=== PATIENT | male | born 1960 | race Caucasian/White ===

== ENCOUNTER 2019-04-11 13:51 | Inpatient (IN) | payer OTHER ==
[2019-04-11 15:06] VITALS: BMI 22.4
--- NOTE | 2019-04-11 15:59 | HP ---
COWS - Scale Resting Pulse: 0= [place] 80 or Below Sweatin= Chills/Flushing Restless Observation: 1= Difficult to Sit Still Pupil Size: 0= Normal to Room Light Bone or Joint Aches: 2= Severe Diffuse Aches Runny Nose/ Eye Tearin= Runny Nose/Eyes GI Upset > 30mins: 1= Stomach Cramp Tremor Observation: 1= Tremor [place], Not Seen Yawning Observation: 0= None Anxiety or Irritability: 2=Irritable/Anxious Goose Flesh Skin: 0=Smooth Skin COWS Score: 10 CIWA Score - Admission Criteria [facility] Guidelines: Admission for Medically Managed Detox: Requires at least one of the followin. CIWA greater than 12 2. Seizures within the past 24 hours 3. Delirium tremens within the past 24 hours 4. Hallucinations within the past 24 hours 5. Acute intervention needed for co occurring medical disorder 6. Acute intervention needed for co occurring psychiatric disorder 7. Severe withdrawal that cannot be handled at a lower level of care (continued vomiting, continued diarrhea, abnormal vital signs) requiring intravenous medication and/or fluids 8. Admitting History and Physical - Admission History of Present Illness: Pt is a 58 yo M with bipolar depression, anxiety, MDD, ADHD,bulging disc ( oxycontin 30mg x 8 times day), COPD (12 years occ inhaler use), until September 2017 then started buying heroin off the streets after the doctor retired and he started loosing weight. Pt does not want residential methadone, wants short term detox. Hasn't never needed detox. Pt feels very motivated as his official first visit Wants a non smoker roommate Heroine Last use of heroine, 6am today, can use 22 bags aday, every 3 hours 3 bags Started heroine September 2018 Tried 4 times to come off, stayed in [place] with induced withdrawal March 2019, rapid detox with vivitriol Had used suboxone for 2months- by Dr Elpidio Curry 2 bundles a day of heroin Pt on dextroamphetamine, alprazolam noted in [facility] 03/02/19 Pt not documented to have been here Cigarettes 5 per day started at 40 from divorce Wants the patch, used chantix 6 months ago and was off for 2 years Marijuana 4-5 times a year Cocaine Snorted/smoked last use 2 days ago Used 1000 dollars worth Injected 2ce, last use last week- son injected him, does not know if needle was used Wants HIV test Pt on Psych meds_ standing order for 12 2mg x4-8mg a day of alprazolam clonazepam-2mg HS Trazodone 200 90mg aderrall- does not want up to 90mg, requesting not to be on adderrall seroquel Latuda Family Hx Both children- Son and daughter have heroin problems from for 18yrs over drugs Grandchild with Son also on detox Son's girlfriend Last [place] from drug over dose Allergies: Sulfa- hives, itching scrating PSHx: Malignant melanoma- 17 years ago FHX: Skin cancer Father-64 Mother lung cancer-57 Grandfather maternal- colon cancer-82 Brother- 54, 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, possible alcoholic liver disease Paternal Gpa- Emphysema at 54 yrs Social hx 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, 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 Emotionally disabled, retired since [address] Lives with 2 adult kids Son is disabled since 16, Low IQ History Source: Patient, Medical Record Limitations to Obtaining History: No Limitations - Past Medical History Pulmonary: Yes: COPD Psych: Yes: Addictions, Anxiety, Bipolar, Other (ADHD) Musculoskeletal: Yes: Chronic low back pain - Past Surgical History Additional Past Surgical History: L dinh melanoma excision - Smoking History Have you smoked in the past 12 months: Yes Aproximately how many cigarettes per day: 5 - Alcohol/Substance Use Hx Alcohol Use: No History of Substance Use: reports: Cocaine, Heroin, Marijuana - Social History Usual Living Arrangement: Yes: With Child Do you think of yourself as: Straight/Heterosexual ADL: Independent History of Recent Travel: No Admission ROS S - HPI Allergies/Adverse Reactions: Allergies Allergy/AdvReac Type Severity Reaction Status Date / Time Sulfa (Sulfonamide Allergy Severe Hives Verified 04/11/19 14:51 Antibiotics) - Ebola screening Have you traveled outside of the country in the last 21 days: No Have you had contact with anyone from an Ebola affected area: No Do you have a fever: No - Review of Systems Constitutional: Chills EENT: reports: No Symptoms Reported Patient History - Smoking Cessation Smoking history: Current every day smoker Have you smoked in the past 12 months: Yes Aproximately how many cigarettes per day: 5 Hx Chewing Tobacco Use: No Initiated information on smoking cessation: Yes 'Breaking Loose' booklet given: 04/11/19 - Substance & Tx. History Hx Alcohol Use: No Hx Substance Use: Yes Substance Use Type: Cocaine, Heroin, Marijuana, Prescribed Hx Substance Use Treatment: Yes - Substances abused Heroin Substance route: Inhalation Frequency: Daily Amount used: 2 bundles Age of first use: 55 Date of last use: 04/10/19 Cocaine Substance route: Inhalation Frequency: 1-2 times per week Amount used: $100 Age of first use: 37 Date of last use: 04/10/19 Admission Physical Exam [facility] - Vital Signs Vital Signs: Vital Signs - 24 hr 04/11/19 15:00 Temperature 97.2 F L Pulse Rate 61 Respiratory 18 Rate Blood Pressure 122/62 - Physical General Appearance: Yes: Anxious HEENTM: Yes: EOMI Respiratory: Yes: Chest Non-Tender, Lungs Clear, Normal Breath Sounds Neck: Yes: Within Normal Limits Breast: Yes: Breast Exam Deferred Cardiology: Yes: Regular Rhythm, Regular Rate, S1, S2 Abdominal: Yes: Non Tender, Increased Bowel Sounds Genitourinary: Yes: Within Normal Limits Back: Yes: Within Normal Limits Musculoskeletal: Yes: Back pain Extremities: Yes: Other (L dinh surgery) Neurological: Yes: Within Normal Limits Integumentary: Yes: Other (tatoos) Cleared for Admission [facility] - Detox or Rehab [facility] Level of Care: Medically Managed Detox Regimen/Protocol: Methadone Claeared for Rehab Admission: No Breathalyzer - Breathalyzer Breathalyzer: 0 Urine Drug Screen - Test Device Lot number: [id number] Expiration date: 12/27/20 - Control Is test valid?: Yes - Results Drug screen NEGATIVE: No Urine drug screen results: DINAH-Cocaine, MOP-Opiates, BZO-Benzodiazepines Inpatient Rehab Admission - Rehab Decision to Admit Inpatient rehab admission?: No
[2019-04-11] MEDS ORDERED: METHOCARBAMOL 500 MG TABLET PO PRN (16:13)
[2019-04-11] MEDS ORDERED: MAGNESIUM HYDROX 2400MG/30ML ORAL SUSPENSION 30 ML CUP PO PRN (16:13)
[2019-04-11] MEDS ORDERED: BISMUTH SUBSALICYLATE 524 MG/30 ML UD PO PRN (16:13)
[2019-04-11] MEDS ORDERED: MENTHOL/PHENOL 1 EACH UD MM PRN (16:13)
[2019-04-11] MEDS ORDERED: ACETAMINOPHEN 325 MG TABLET (FP) PO PRN ×2 (16:13)
[2019-04-11] MEDS ORDERED: MELATONIN 5 MG TABLETS PO PRN (16:13)
[2019-04-11] MEDS ORDERED: MAG HYDROX/AL HYDROX/SIMETH 30 ML UNIT-DOSE CUP PO PRN (16:13)
[2019-04-11] MEDS ORDERED: IBUPROFEN 400 MG TABLET (FP) PO PRN (16:13)
[2019-04-11] MEDS ORDERED: MAGNESIUM CITRATE 300 ML BOTTLE PO PRN (16:13)
[2019-04-11] MEDS ORDERED: SUVOREXANT 10 MG TABLET PO PRN (16:22)
[2019-04-11] MEDS ORDERED: METHADONE HCL 10 MG TABLET (FOR DETOX USE ONLY) PO ONE (18:30)
[2019-04-11] MEDS ORDERED: QUEtiapine FUMARATE 100 MG TABLET (FP) ONE (21:39)
[2019-04-11] MEDS ORDERED: clonazePAM 0.5 MG TABLET PO SCH (22:00)
[2019-04-11] MEDS ORDERED: QUEtiapine FUMARATE 300 MG TABLET PO SCH (22:00)
[2019-04-11] MEDS: lamoTRIgine 100 MG TABLET (FP) PO SCH (22:42)
[2019-04-11] MEDS: THIAMINE HCL 100 MG TABLET (FP) PO SCH (22:42)
[2019-04-11] MEDS: cloNIDine HCL 0.1 MG TABLET PO PRN (22:44)
[2019-04-12] MEDS ORDERED: METHADONE HCL 5 MG TABLET (FOR DETOX USE ONLY) ONE (08:34)
[2019-04-12] MEDS ORDERED: METHADONE HCL 10 MG TABLET (FOR DETOX USE ONLY) ONE (08:34)
[2019-04-12 09:46] LABS: HEMATOCRIT 38.8 % (35.4-49); HEMOGLOBIN 12.9 GM/dL (11.7-16.9); MCH 30.6 pg (25.7-33.7); MCHC 33.2 g/dl (32.0-35.9); MEAN CELL VOLUME 92.1 fl (80-96); MEAN PLT VOLUME 8.3 fl (7.5-11.1); PLATELET COUNT 233 K/MM3 (134-434); RBC 4.21 M/mm3 (4.00-5.60); RDW 14.4 % (11.9-15.9); WHITE BLOOD COUNT 5.2 K/mm3 (4.0-10.0)
[2019-04-12] MEDS ORDERED: METHADONE (DETOX) 20 MG, METHADONE (DETOX) 5 MG PO ONE (10:00)
[2019-04-12] MEDS: PRENATAL VITAMINS W/ FOLIC ACID TABLET (FP) PO SCH (10:06)
[2019-04-12 10:07] LABS: ALBUMIN 3.1 g/dl (3.4-5.0); BILIRUBIN,TOTAL 0.8 mg/dL (0.2-1); BLOOD UREA NITROGEN 15.5 mg/dL (7-18); CALCIUM 8.3 mg/dL (8.5-10.1); CREATININE 0.9 mg/dL (0.55-1.3); POTASSIUM 4.4 mmol/L (3.5-5.1); TOT PROT 5.5 g/dl (6.4-8.2)
[2019-04-12] MEDS: DEXTROAMPHETAMINE/AMPHETAMINE 10 MG CAP.ER.24H PO SCH (10:08)
[2019-04-12] MEDS: lamoTRIgine 100 MG TABLET (FP) PO SCH (10:08)
[2019-04-12] MEDS: NICOTINE 7 MG/24 HOURS TOPICAL PATCH TD SCH (10:09)
--- NOTE | 2019-04-12 11:26 | PN ---
Teaching Attending Note Name of Resident: Jennifer Eaton ATTENDING PHYSICIAN STATEMENT I saw and evaluated the patient. I reviewed the resident's note and discussed the case with the resident. I agree with the resident's findings and plan as documented. SUBJECTIVE: Agree with resident's subjective findings. OBJECTIVE: Agree with resident's objective findings. ASSESSMENT AND PLAN: Agree with admission for detox. Dr. Negron
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
--- NOTE | 2019-04-12 14:02 | PN ---
[facility] COWS - Scale Resting Pulse: 0= [place] 80 or Below Sweatin= Chills/Flushing Restless Observation: 0= Sits Still Pupil Size: 1= Pupils >than Normal Bone or Joint Aches: 1= Mild Discomfort Runny Nose/ Eye Tearin= Nasal Congestion GI Upset > 30mins: 1= Stomach Cramp Tremor Observation of Outstretched Hands: 2= Slight Tremor Visible Yawning Observation: 1= 1-2x During Session Anxiety or Irritability: 2=Irritable/Anxious Goose Flesh Skin: 3=Piloerection COWS Score: 13 [facility] Progress Note (SOAP) Subjective: 58 years old male admitted on 04/11/19 for opiate withdrawal sx managemetn treated with methadone detox regimen patient is taking klonopin 2 mg po hs and xanax 2 mg po qid with monthly prescription last 30 day filled 03/02/19 patient will be evaluated by psychiatrist today Objective: 04/12/19 14:02 Vital Signs Temperature 97.6 F 04/12/19 13:18 Pulse Rate 56 L 04/12/19 13:18 Respiratory Rate 18 04/12/19 13:18 Blood Pressure 84/46 L 04/12/19 13:18 O2 Sat by Pulse Oximetry (%) Laboratory Last Values WBC 5.2 K/mm3 (4.0-10.0) 04/12/19 07:44 RBC 4.21 M/mm3 (4.00-5.60) 04/12/19 07:44 Hgb 12.9 GM/dL (11.7-16.9) 04/12/19 07:44 Hct 38.8 % (35.4-49) 04/12/19 07:44 MCV 92.1 fl (80-96) 04/12/19 07:44 MCH 30.6 pg (25.7-33.7) 04/12/19 07:44 MCHC 33.2 g/dl (32.0-35.9) 04/12/19 07:44 RDW 14.4 % (11.9-15.9) 04/12/19 07:44 Plt Count 233 K/MM3 (134-434) 04/12/19 07:44 MPV 8.3 fl (7.5-11.1) 04/12/19 07:44 Sodium 141 mmol/L (136-145) 04/12/19 07:44 Potassium 4.4 mmol/L (3.5-5.1) 04/12/19 07:44 Chloride 110 mmol/L (98-107) H 04/12/19 07:44 Carbon Dioxide 28 mmol/L (21-32) 04/12/19 07:44 Anion Gap 4 MMOL/L (8-16) L 04/12/19 07:44 BUN 15.5 mg/dL (7-18) 04/12/19 07:44 Creatinine 0.9 mg/dL (0.55-1.3) 04/12/19 07:44 Est GFR (CKD-EPI)AfAm 109.50 04/12/19 07:44 Est GFR (CKD-EPI)NonAf 94.48 04/12/19 07:44 Random Glucose 82 mg/dL (74-106) 04/12/19 07:44 Calcium 8.3 mg/dL (8.5-10.1) L 04/12/19 07:44 Total Bilirubin 0.8 mg/dL (0.2-1) 04/12/19 07:44 AST 7 U/L (15-37) L 04/12/19 07:44 ALT 14 U/L (13-61) 04/12/19 07:44 Alkaline Phosphatase 51 U/L (45-117) 04/12/19 07:44 Total Protein 5.5 g/dl (6.4-8.2) L 04/12/19 07:44 Albumin 3.1 g/dl (3.4-5.0) L 04/12/19 07:44 RPR Titer Nonreactive (NONREACTIVE) 04/12/19 07:44 lab noted Assessment: 04/12/19 14:02 opiate withdrawal sx Plan: continue methadone detox regimen
[2019-04-12] MEDS: THIAMINE HCL 100 MG TABLET (FP) PO SCH (22:15)
[2019-04-12] MEDS: lamoTRIgine 25 MG TABLET PO SCH (22:15)
[2019-04-12] MEDS: diazePAM 5 MG TABLET PO SCH (22:15)
[2019-04-13] MEDS: diazePAM 5 MG TABLET PO SCH ×3 (05:20→21:09)
[2019-04-13] MEDS ORDERED: METHADONE HCL 10 MG TABLET (FOR DETOX USE ONLY) PO ONE (10:00)
[2019-04-13] MEDS: PRENATAL VITAMINS W/ FOLIC ACID TABLET (FP) PO SCH (10:18)
[2019-04-13] MEDS: lamoTRIgine 25 MG TABLET PO SCH ×2 (10:18→21:09)
[2019-04-13] MEDS: DEXTROAMPHETAMINE/AMPHETAMINE 10 MG CAP.ER.24H PO SCH (10:18)
[2019-04-13] MEDS: NICOTINE 7 MG/24 HOURS TOPICAL PATCH TD SCH (10:18)
[2019-04-13] MEDS: cloNIDine HCL 0.1 MG TABLET PO PRN (10:22)
--- NOTE | 2019-04-13 12:59 | PN ---
[facility] CIWA - CIWA Score Nausea/Vomitin-Mild Nausea/No Vomiting Muscle Tremors: 1-None Visible, but [place] Anxiety: 2 Agitation: 2 Paroxysmal Sweats: No Perspiration Orientation: 0-Oriented Tacttile Disturbances: 1-Very Mild Itch/Numbness Auditory Disturbances: 0-None Visual Disturbances: 0-None Headache: 2-Mild CIWA-Ar Total Score: 9 [facility] COWS - Scale Resting Pulse: 0= MT 80 or Below Sweatin= No chills or [place] Restless Observation: 1= Difficult to Sit Still Pupil Size: 1= Pupils >than Normal Bone or Joint Aches: 1= Mild Discomfort Runny Nose/ Eye Tearin= Nasal Congestion GI Upset > 30mins: 1= Stomach Cramp Tremor Observation of Outstretched Hands: 1= Tremor [place], Not Seen Yawning Observation: 1= 1-2x During Session Anxiety or Irritability: 2=Irritable/Anxious Goose Flesh Skin: 0=Smooth Skin COWS Score: 9 S Progress Note (SOAP) Subjective: alert,irritable,anxious,interrupted sleep,pain in the body and back Objective: 04/13/19 12:57 Vital Signs Temperature 97.8 F 04/13/19 09:29 Pulse Rate 78 04/13/19 09:29 Respiratory Rate 18 04/13/19 09:29 Blood Pressure 105/79 04/13/19 09:29 O2 Sat by Pulse Oximetry (%) Laboratory Last Values WBC 5.2 K/mm3 (4.0-10.0) 04/12/19 07:44 RBC 4.21 M/mm3 (4.00-5.60) 04/12/19 07:44 Hgb 12.9 GM/dL (11.7-16.9) 04/12/19 07:44 Hct 38.8 % (35.4-49) 04/12/19 07:44 MCV 92.1 fl (80-96) 04/12/19 07:44 MCH 30.6 pg (25.7-33.7) 04/12/19 07:44 MCHC 33.2 g/dl (32.0-35.9) 04/12/19 07:44 RDW 14.4 % (11.9-15.9) 04/12/19 07:44 Plt Count 233 K/MM3 (134-434) 04/12/19 07:44 MPV 8.3 fl (7.5-11.1) 04/12/19 07:44 Sodium 141 mmol/L (136-145) 04/12/19 07:44 Potassium 4.4 mmol/L (3.5-5.1) 04/12/19 07:44 Chloride 110 mmol/L (98-107) H 04/12/19 07:44 Carbon Dioxide 28 mmol/L (21-32) 04/12/19 07:44 Anion Gap 4 MMOL/L (8-16) L 04/12/19 07:44 BUN 15.5 mg/dL (7-18) 04/12/19 07:44 Creatinine 0.9 mg/dL (0.55-1.3) 04/12/19 07:44 Est GFR (CKD-EPI)AfAm 109.50 04/12/19 07:44 Est GFR (CKD-EPI)NonAf 94.48 04/12/19 07:44 Random Glucose 82 mg/dL (74-106) 04/12/19 07:44 Calcium 8.3 mg/dL (8.5-10.1) L 04/12/19 07:44 Total Bilirubin 0.8 mg/dL (0.2-1) 04/12/19 07:44 AST 7 U/L (15-37) L 04/12/19 07:44 ALT 14 U/L (13-61) 04/12/19 07:44 Alkaline Phosphatase 51 U/L (45-117) 04/12/19 07:44 Total Protein 5.5 g/dl (6.4-8.2) L 04/12/19 07:44 Albumin 3.1 g/dl (3.4-5.0) L 04/12/19 07:44 RPR Titer Nonreactive (NONREACTIVE) 04/12/19 07:44 Assessment: 04/13/19 12:58 withdrawal symptom Plan: continue detox,methadone and valium regomen
[2019-04-13] MEDS: diazePAM 5 MG TABLET PO PRN (15:49)
[2019-04-13] MEDS: THIAMINE HCL 100 MG TABLET (FP) PO SCH (21:09)
[2019-04-14] MEDS: diazePAM 5 MG TABLET PO SCH ×2 (05:45→17:08)
[2019-04-14] MEDS ORDERED: METHADONE HCL 10 MG TABLET (FOR DETOX USE ONLY) ONE (08:30)
[2019-04-14] MEDS ORDERED: METHADONE HCL 5 MG TABLET (FOR DETOX USE ONLY) ONE (08:30)
[2019-04-14] MEDS ORDERED: METHADONE (DETOX) 10 MG, METHADONE (DETOX) 5 MG PO ONE (10:00)
[2019-04-14] MEDS: NICOTINE 7 MG/24 HOURS TOPICAL PATCH TD SCH (10:22)
[2019-04-14] MEDS: PRENATAL VITAMINS W/ FOLIC ACID TABLET (FP) PO SCH (10:22)
[2019-04-14] MEDS: lamoTRIgine 25 MG TABLET PO SCH ×2 (10:22→22:16)
[2019-04-14] MEDS: DEXTROAMPHETAMINE/AMPHETAMINE 10 MG CAP.ER.24H PO SCH (10:23)
[2019-04-14] MEDS: diazePAM 5 MG TABLET PO PRN ×2 (10:25→22:16)
--- NOTE | 2019-04-14 11:46 | PN ---
[facility] CIWA - CIWA Score Nausea/Vomitin-No Nausea/No Vomiting Muscle Tremors: None Anxiety: 3 Agitation: 0-Normal Activity Paroxysmal Sweats: 3 Orientation: 0-Oriented Tacttile Disturbances: 0-None Auditory Disturbances: 0-None Visual Disturbances: 0-None Headache: 2-Mild CIWA-Ar Total Score: 8 S COWS - Scale Resting Pulse: 0= [place] 80 or Below Sweatin= Beads of Sweat on Face Restless Observation: 1= Difficult to Sit Still Pupil Size: 0= Normal to Room Light Bone or Joint Aches: 1= Mild Discomfort Runny Nose/ Eye Tearin= None GI Upset > 30mins: 0= None Tremor Observation of Outstretched Hands: 0= None Yawning Observation: 1= 1-2x During Session Anxiety or Irritability: 2=Irritable/Anxious Goose Flesh Skin: 0=Smooth Skin COWS Score: 8 [facility] Progress Note (SOAP) Subjective: c/o sweats, irritability, anxiety, and headache. Objective: 04/14/19 11:45 Vital Signs 04/14/19 04/14/19 06:37 09:07 Temperature 96.2 F L 97.1 F L Pulse Rate 52 L 56 L Respiratory 18 18 Rate Blood Pressure 100/60 108/64 Laboratory Last Values WBC 5.2 K/mm3 (4.0-10.0) 04/12/19 07:44 RBC 4.21 M/mm3 (4.00-5.60) 04/12/19 07:44 Hgb 12.9 GM/dL (11.7-16.9) 04/12/19 07:44 Hct 38.8 % (35.4-49) 04/12/19 07:44 MCV 92.1 fl (80-96) 04/12/19 07:44 MCH 30.6 pg (25.7-33.7) 04/12/19 07:44 MCHC 33.2 g/dl (32.0-35.9) 04/12/19 07:44 RDW 14.4 % (11.9-15.9) 04/12/19 07:44 Plt Count 233 K/MM3 (134-434) 04/12/19 07:44 MPV 8.3 fl (7.5-11.1) 04/12/19 07:44 Sodium 141 mmol/L (136-145) 04/12/19 07:44 Potassium 4.4 mmol/L (3.5-5.1) 04/12/19 07:44 Chloride 110 mmol/L (98-107) H 04/12/19 07:44 Carbon Dioxide 28 mmol/L (21-32) 04/12/19 07:44 Anion Gap 4 MMOL/L (8-16) L 04/12/19 07:44 BUN 15.5 mg/dL (7-18) 04/12/19 07:44 Creatinine 0.9 mg/dL (0.55-1.3) 04/12/19 07:44 Est GFR (CKD-EPI)AfAm 109.50 04/12/19 07:44 Est GFR (CKD-EPI)NonAf 94.48 04/12/19 07:44 Random Glucose 82 mg/dL (74-106) 04/12/19 07:44 Calcium 8.3 mg/dL (8.5-10.1) L 04/12/19 07:44 Total Bilirubin 0.8 mg/dL (0.2-1) 04/12/19 07:44 AST 7 U/L (15-37) L 04/12/19 07:44 ALT 14 U/L (13-61) 04/12/19 07:44 Alkaline Phosphatase 51 U/L (45-117) 04/12/19 07:44 Total Protein 5.5 g/dl (6.4-8.2) L 04/12/19 07:44 Albumin 3.1 g/dl (3.4-5.0) L 04/12/19 07:44 RPR Titer Nonreactive (NONREACTIVE) 04/12/19 07:44 Labs noted. Assessment: 04/14/19 11:46 AOX3, in no acute respiratory distress. Full ROM, ambulating in the unit. Withdrawal symptoms. Plan: continue detox.
[2019-04-14] MEDS: hydrOXYzine PAMOATE 25 MG CAPSULE (FP) PO PRN (16:49)
[2019-04-14] MEDS: THIAMINE HCL 100 MG TABLET (FP) PO SCH (22:16)
[2019-04-15] MEDS ORDERED: diazePAM 5 MG TABLET PO ONE (06:00)
[2019-04-15] MEDS ORDERED: METHADONE HCL 10 MG TABLET (FOR DETOX USE ONLY) PO ONE (10:00)
[2019-04-15] MEDS: diazePAM 5 MG TABLET PO PRN ×2 (10:36→15:07)
[2019-04-15] MEDS: PRENATAL VITAMINS W/ FOLIC ACID TABLET (FP) PO SCH (10:36)
[2019-04-15] MEDS: DEXTROAMPHETAMINE/AMPHETAMINE 10 MG CAP.ER.24H PO SCH (10:36)
[2019-04-15] MEDS: lamoTRIgine 25 MG TABLET PO SCH ×2 (10:36→22:10)
[2019-04-15] MEDS: NICOTINE 7 MG/24 HOURS TOPICAL PATCH TD SCH (10:36)
--- NOTE | 2019-04-15 14:10 | PN ---
S CIWA - CIWA Score Nausea/Vomitin-No Nausea/No Vomiting Muscle Tremors: 1-None Visible, but [place] Anxiety: 2 Agitation: 1-Slight > Activity Paroxysmal Sweats: No Perspiration Orientation: 0-Oriented Tacttile Disturbances: 0-None Auditory Disturbances: 0-None Visual Disturbances: 0-None Headache: 0-None Present CIWA-Ar Total Score: 4 S COWS - Scale Resting Pulse: 0= [place] 80 or Below Sweatin= Chills/Flushing Restless Observation: 0= Sits Still Pupil Size: 0= Normal to Room Light Bone or Joint Aches: 1= Mild Discomfort Runny Nose/ Eye Tearin= None GI Upset > 30mins: 0= None Tremor Observation of Outstretched Hands: 1= Tremor [place], Not Seen Yawning Observation: 0= None Anxiety or Irritability: 1=Feels Anxious/Irritable Goose Flesh Skin: 0=Smooth Skin COWS Score: 4 S Progress Note (SOAP) Subjective: 58 years old male admitted on 04/11/19 for alcohol and opiate withdrawal sx management treated with valium and methadone detox regimen feeling better sleep through the night patient prefers to return to [facility] provider Objective: 04/15/19 14:11 Vital Signs Temperature 97.0 F L 04/15/19 09:50 Pulse Rate 58 L 04/15/19 09:50 Respiratory Rate 18 04/15/19 09:50 Blood Pressure 103/70 04/15/19 09:50 O2 Sat by Pulse Oximetry (%) Laboratory Last Values WBC 5.2 K/mm3 (4.0-10.0) 04/12/19 07:44 RBC 4.21 M/mm3 (4.00-5.60) 04/12/19 07:44 Hgb 12.9 GM/dL (11.7-16.9) 04/12/19 07:44 Hct 38.8 % (35.4-49) 04/12/19 07:44 MCV 92.1 fl (80-96) 04/12/19 07:44 MCH 30.6 pg (25.7-33.7) 04/12/19 07:44 MCHC 33.2 g/dl (32.0-35.9) 04/12/19 07:44 RDW 14.4 % (11.9-15.9) 04/12/19 07:44 Plt Count 233 K/MM3 (134-434) 04/12/19 07:44 MPV 8.3 fl (7.5-11.1) 04/12/19 07:44 Sodium 141 mmol/L (136-145) 04/12/19 07:44 Potassium 4.4 mmol/L (3.5-5.1) 04/12/19 07:44 Chloride 110 mmol/L (98-107) H 04/12/19 07:44 Carbon Dioxide 28 mmol/L (21-32) 04/12/19 07:44 Anion Gap 4 MMOL/L (8-16) L 04/12/19 07:44 BUN 15.5 mg/dL (7-18) 04/12/19 07:44 Creatinine 0.9 mg/dL (0.55-1.3) 04/12/19 07:44 Est GFR (CKD-EPI)AfAm 109.50 04/12/19 07:44 Est GFR (CKD-EPI)NonAf 94.48 04/12/19 07:44 Random Glucose 82 mg/dL (74-106) 04/12/19 07:44 Calcium 8.3 mg/dL (8.5-10.1) L 04/12/19 07:44 Total Bilirubin 0.8 mg/dL (0.2-1) 04/12/19 07:44 AST 7 U/L (15-37) L 04/12/19 07:44 ALT 14 U/L (13-61) 04/12/19 07:44 Alkaline Phosphatase 51 U/L (45-117) 04/12/19 07:44 Total Protein 5.5 g/dl (6.4-8.2) L 04/12/19 07:44 Albumin 3.1 g/dl (3.4-5.0) L 04/12/19 07:44 RPR Titer Nonreactive (NONREACTIVE) 04/12/19 07:44 lab noted Assessment: 04/15/19 14:11 alcohol and opiate withdrawal sx Plan: continue valium and methadone detox regimen
[2019-04-15] MEDS: THIAMINE HCL 100 MG TABLET (FP) PO SCH (22:10)
[2019-04-15] MEDS: hydrOXYzine PAMOATE 25 MG CAPSULE (FP) PO PRN (22:13)
[2019-04-16] MEDS ORDERED: METHADONE HCL 5 MG TABLET (FOR DETOX USE ONLY) PO ONE (06:00)
[2019-04-16 06:35] VITALS: BP 98/61; PULSE 60; TEMP 96.1
--- NOTE | 2019-04-16 09:49 | DS ---
[facility] Detox Discharge Summary Admission Date: 04/11/19 Discharge Date: 04/16/19 - History Present History: Alcohol Dependence, Opioid Dependence Additional Comments: 58 years old male admitted on 04/11/19 for alcohol and opiate withdrawal sx management treated with valium and methadone detox regimen patient left the detox unit around 7 am today engineering writer dose not have the opportunity to assess or evaluate the patient for ciwa cows and exist discharge physical examination - Physical Exam Results Vital Signs: Vital Signs Temperature 96.1 F L 04/16/19 06:00 Pulse Rate 60 04/16/19 06:00 Respiratory Rate 18 04/16/19 06:00 Blood Pressure 98/61 04/16/19 06:00 O2 Sat by Pulse Oximetry (%) Pertinent Admission Physical Exam Findings: valium and methadone detox regimen Laboratory Last Values WBC 5.2 K/mm3 (4.0-10.0) 04/12/19 07:44 RBC 4.21 M/mm3 (4.00-5.60) 04/12/19 07:44 Hgb 12.9 GM/dL (11.7-16.9) 04/12/19 07:44 Hct 38.8 % (35.4-49) 04/12/19 07:44 MCV 92.1 fl (80-96) 04/12/19 07:44 MCH 30.6 pg (25.7-33.7) 04/12/19 07:44 MCHC 33.2 g/dl (32.0-35.9) 04/12/19 07:44 RDW 14.4 % (11.9-15.9) 04/12/19 07:44 Plt Count 233 K/MM3 (134-434) 04/12/19 07:44 MPV 8.3 fl (7.5-11.1) 04/12/19 07:44 Sodium 141 mmol/L (136-145) 04/12/19 07:44 Potassium 4.4 mmol/L (3.5-5.1) 04/12/19 07:44 Chloride 110 mmol/L (98-107) H 04/12/19 07:44 Carbon Dioxide 28 mmol/L (21-32) 04/12/19 07:44 Anion Gap 4 MMOL/L (8-16) L 04/12/19 07:44 BUN 15.5 mg/dL (7-18) 04/12/19 07:44 Creatinine 0.9 mg/dL (0.55-1.3) 04/12/19 07:44 Est GFR (CKD-EPI)AfAm 109.50 04/12/19 07:44 Est GFR (CKD-EPI)NonAf 94.48 04/12/19 07:44 Random Glucose 82 mg/dL (74-106) 04/12/19 07:44 Calcium 8.3 mg/dL (8.5-10.1) L 04/12/19 07:44 Total Bilirubin 0.8 mg/dL (0.2-1) 04/12/19 07:44 AST 7 U/L (15-37) L 04/12/19 07:44 ALT 14 U/L (13-61) 04/12/19 07:44 Alkaline Phosphatase 51 U/L (45-117) 04/12/19 07:44 Total Protein 5.5 g/dl (6.4-8.2) L 04/12/19 07:44 Albumin 3.1 g/dl (3.4-5.0) L 04/12/19 07:44 RPR Titer Nonreactive (NONREACTIVE) 04/12/19 07:44 lab noted - Treatment Hospital Course: Detox Protocol Followed, Detoxed Safely, Responded well, Discharged Condition Good, Rehab Referral Accepted Patient has Accepted a Rehab Referral to: return to xanax klonopin provider - Medication Discharge Medications: Ambulatory Orders Alprazolam [Xanax] 2 mg PO QID PRN 04/11/19 Bupropion HCl [Wellbutrin Sr] 150 mg PO BID 04/11/19 Clonazepam [Klonopin] 2 mg PO HS 04/11/19 Clonidine HCl [Catapres] 0.2 mg PO BID 04/11/19 Dextroamphetamine/Amphetamine [Adderall Xr 30 mg Capsule] 30 mg PO TID 04/11/19 Lamotrigine [Lamictal] 200 mg PO BID 04/11/19 Lurasidone HCl [Latuda] 80 mg PO HS 04/11/19 Quetiapine Fumarate [Seroquel] 300 mg PO HS 04/11/19 Trazodone HCl 150 mg PO HS 04/11/19 - Diagnosis (1) Sedative, hypnotic or anxiolytic dependence, uncomplicated Status: Acute (2) Opioid use disorder Status: Acute (3) Substance induced mood disorder Status: Suspected - AMA Did Patient Leave Against Medical Advice: No
== END 2019-04-16 06:56 | disposition home or self-care (01) | DRG 897 ==
LOC: YASAS 13:51 → Y3N 17:27
PROVIDERS: ADMIT Allergy & Immunology; ATTEND Allergy & Immunology
PROC: HZ2ZZZZ Detoxification Services for Substance Abuse Treatment (ICD-10-PCS; principal; 2019-04-11)
DX: F11.23 Opioid dependence with withdrawal (principal); F14.20 Cocaine dependence, uncomplicated; F10.230 Alcohol dependence with withdrawal, uncomplicated; F17.210 Nicotine dependence, cigarettes, uncomplicated; F31.9 Bipolar disorder, unspecified; F19.24 Other psychoactive substance dependence with psychoactive substance-induced mood disorder; F90.9 Attention-deficit hyperactivity disorder, unspecified type; F43.10 Post-traumatic stress disorder, unspecified; J44.9 Chronic obstructive pulmonary disease, unspecified; M54.6 Pain in thoracic spine; G89.29 Other chronic pain; Z85.820 Personal history of malignant melanoma of skin; Z88.2 Allergy status to sulfonamides
CPT/HCPCS: 36415; 80053; 85027; 86593; J0735

== ENCOUNTER 2019-05-02 15:49 | Inpatient (IN) | payer OTHER ==
[2019-05-02 17:52] VITALS: BMI 23.1
--- NOTE | 2019-05-02 19:27 | HP ---
COWS - Scale Resting Pulse: 0= [place] 80 or Below Sweatin= Chills/Flushing Restless Observation: 1= Difficult to Sit Still Pupil Size: 0= Normal to Room Light Bone or Joint Aches: 1= Mild Discomfort Runny Nose/ Eye Tearin= Runny Nose/Eyes GI Upset > 30mins: 0= None Tremor Observation: 2= Slight Tremor Visible Yawning Observation: 1= 1-2x During Session Anxiety or Irritability: 2=Irritable/Anxious Goose Flesh Skin: 3=Piloerection COWS Score: 13 CIWA Score - Admission Criteria OASAS Guidelines: Admission for Medically Managed Detox: Requires at least one of the followin. CIWA greater than 12 2. Seizures within the past 24 hours 3. Delirium tremens within the past 24 hours 4. Hallucinations within the past 24 hours 5. Acute intervention needed for co occurring medical disorder 6. Acute intervention needed for co occurring psychiatric disorder 7. Severe withdrawal that cannot be handled at a lower level of care (continued vomiting, continued diarrhea, abnormal vital signs) requiring intravenous medication and/or fluids 8. Admitting History and Physical - Admission History of Present Illness: Pt is a 58 yo M with bipolar depression, anxiety, MDD, ADHD,bulging disc, COPD, pt had first detox 04/11-04/16 and relapsed 2 days after discharge. Here for possible detox heroin. Wants a methadone program after discharge Pt reports being comfortable on Valium while here during the last detox. Was placed on Valium taper due to the high dose of klonipin and and alprazolam he was prescribed in past. We are putting him on Valium 5mg bid scheduled for now, please adjust as pt needs as he may withdraw from benzos if dose is inadequate Will continue severe methadone for pt and recommend he continue on Suboxone during rehab until he can be plaugged into methadone program or linked with outpatient suboxone prescription Dr Mcpherson discussed with the patient utox-cocaine, Fen, MOP, Bzo Heroine- utox Fen, MOP Pt has been using 2 and 1/2 bundles daily since 2 days after discharge-04/18/19 Last use of heroine, 6am today, used 15 bags Buys 3-5 bundles at a time Started heroine September 2018 Tried 4 times to come off, stayed in [place] with induced withdrawal March 2019, rapid detox with vivitriol Had used suboxone for 2months- Jan [address] Elpidio Curry Left early Tuesday morning, felt real sick by Tuesday and relapsed into heroin and cocaine (sniffing) Overdosed twice yesterday at home, son put him in shower first time and second time and then got narcan from his son Now pt wants after detox and rehab then 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 Cocaine- utox Snorted/smoked $500 dollars worth for the month Last use last night, one quarter of a gram Used 5-6 times a wake son injected him, does not know if needle was used Benzo On psych meds 2 days ago- Lamictal, seroquel, wellbutrin, trazodone, alprazolam 2mg qid, Clonipine-0.2 mg HS Cigarettes 5 per day started at 40 from divorce Wants the patch, used chantix 6 months ago and was off for 2 years Marijuana 1 joint per day Last use was Had Psych meds adjusted- Pt on Psych meds_ standing order for 12 2mg x4-8mg a day of alprazolam clonazepam-2mg HS Trazodone 200 90mg aderrall- does not want up to 90mg, requesting not to be on adderrall seroquel Latuda Family Hx Both children- Son and daughter have heroin problems from for 18yrs over drugs Grandchild with Son also on detox Son's girlfriend Last [place] from drug over dose Allergies: Sulfa- hives, itching scrating PSHx: Malignant melanoma- 17 years ago FHX: Skin cancer Father-64 Mother lung cancer-57 Grandfather maternal- colon cancer-82 Brother- 54, retired police chief, possible alcoholic liver disease Paternal Gpa- Emphysema at 54 yrs Social hx 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, 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 Emotionally disabled, retired since 40yrs Living on dividends of [employer] Lives with 2 adult kids Son is disabled since 16, Low IQ Per records, pt used prescription until September 2017 then started buying heroin off the streets after the doctor retired and he started loosing weigh Pt noted to be on dextroamphetamine, alprazolam noted in istop 03/02/19 History Source: Patient, Medical Record Limitations to Obtaining History: No Limitations - Past Medical History Pulmonary: Yes: COPD Psych: Yes: Anxiety, Addictions, Bipolar, Other Musculoskeletal: Yes: Chronic low back pain - Smoking History Smoking history: Current every day smoker Have you smoked in the past 12 months: Yes Aproximately how many cigarettes per day: 5 - Alcohol/Substance Use Hx Alcohol Use: No History of Substance Use: reports: Cocaine, Heroin, Marijuana - Social History Usual Living Arrangement: Yes: With Spouse Do you think of yourself as: Straight/Heterosexual ADL: Independent History of Recent Travel: No Admission ROS [facility] Allergies/Adverse Reactions: Allergies Allergy/AdvReac Type Severity Reaction Status Date / Time Sulfa (Sulfonamide Allergy Severe Hives Verified 05/02/19 17:40 Antibiotics) - Ebola screening Have you traveled outside of the country in the last 21 days: No Have you had contact with anyone from an Ebola affected area: No - Review of Systems Constitutional: Chills EENT: reports: No Symptoms Reported Respiratory: reports: No Symptoms reported Cardiac: reports: No Symptoms Reported GI: reports: No Symptoms Reported : reports: No Symptoms Reported Musculoskeletal: reports: No Symptoms Reported Integumentary: reports: No Symptoms Reported Neuro: reports: No Symptoms reported Endocrine: reports: No Symptoms Reported Hematology: reports: No Symptoms Reported Psychiatric: reports: No Sypmtoms Reported Other Systems: Reviewed and Negative Patient History - Patient Medical History Hx Asthma: No Hx Cardiac Disorders: No Hx Hypertension: No Hx Seizures: No Hx Diabetes: No Hx Gastrointestinal Disorders: No Hx Genitourinary Disorders: No Hx Sexually Transmitted Disorders: No Hx Renal Disease (ESRD): No Hx Depression: Yes - Patient Surgical History Past Surgical History: No - Smoking Cessation Smoking history: Current every day smoker Have you smoked in the past 12 months: Yes Aproximately how many cigarettes per day: 5 Hx Chewing Tobacco Use: No Initiated information on smoking cessation: Yes 'Breaking Loose' booklet given: 05/02/19 - Substances abused Heroin Substance route: Inhalation Frequency: Daily Amount used: 3 BUNDLES Age of first use: 55 Date of last use: 05/02/19 Cocaine Substance route: Inhalation Frequency: 1-3 times last 30 days Amount used: 1000$ IN A BINGE FOR APRIL Age of first use: 37 Date of last use: 05/01/19 Marijuana/Hashish Substance route: Smoking Frequency: 1-2 times per week Amount used: $500 Admission Physical Exam S - Vital Signs Vital Signs: Vital Signs - 24 hr 05/02/19 17:46 Temperature 98.7 F Pulse Rate 55 L Respiratory 18 Rate Blood Pressure 94/60 - Physical General Appearance: Yes: Anxious HEENTM: Yes: EOMI Respiratory: Yes: Chest Non-Tender, Lungs Clear, Normal Breath Sounds Neck: Yes: Within Normal Limits Breast: Yes: Breast Exam Deferred Cardiology: Yes: S1, S2, Bradycardia Abdominal: Yes: Soft Genitourinary: Yes: Within Normal Limits Back: Yes: Within Normal Limits Musculoskeletal: Yes: full range of Motion Extremities: Yes: Within Normal Limits Neurological: Yes: Within Normal Limits, Fully Oriented, Motor Strength 5/5 Integumentary: Yes: Within Normal Limits Lymphatic: Yes: Within Normal Limits Cleared for Admission [facility] - Detox or Rehab [facility] Level of Care: Medically Supervised Breathalyzer - Breathalyzer Breathalyzer: 0 Urine Drug Screen - Test Device Lot number: [id number] Expiration date: 12/26/20 - Control Is test valid?: Yes - Results Drug screen NEGATIVE: No Urine drug screen results: DINAH-Cocaine, FEN-Fentanyl, MOP-Opiates, BZO- Benzodiazepines Inpatient Rehab Admission - Rehab Decision to Admit Inpatient rehab admission?: No
[2019-05-02] MEDS ORDERED: ACETAMINOPHEN 325 MG TABLET (FP) PO PRN ×2 (20:04)
[2019-05-02] MEDS ORDERED: MENTHOL/PHENOL 1 EACH UD MM PRN (20:04)
[2019-05-02] MEDS ORDERED: MAGNESIUM CITRATE 300 ML BOTTLE PO PRN (20:04)
[2019-05-02] MEDS ORDERED: MAGNESIUM HYDROX 2400MG/30ML ORAL SUSPENSION 30 ML CUP PO PRN (20:04)
[2019-05-02] MEDS ORDERED: BISMUTH SUBSALICYLATE 524 MG/30 ML UD PO PRN (20:04)
[2019-05-02] MEDS ORDERED: IBUPROFEN 400 MG TABLET (FP) PO PRN (20:04)
[2019-05-02] MEDS ORDERED: MAG HYDROX/AL HYDROX/SIMETH 30 ML UNIT-DOSE CUP PO PRN (20:04)
[2019-05-02] MEDS ORDERED: METHADONE HCL 10 MG TABLET (FOR DETOX USE ONLY) PO ONE (20:04)
--- NOTE | 2019-05-02 20:14 | PN ---
Teaching Attending Note Name of Resident: Jennifer Eaton ATTENDING PHYSICIAN STATEMENT I saw and evaluated the patient. I reviewed the resident's note and discussed the case with the resident. I agree with the resident's findings and plan as documented. SUBJECTIVE: 58 yo recently discharged recently from here, returns today after relapsing and possible overdose yesterday. Pt states he will go to residential- MAT methadone. Pt is also on xanax 8mg and Klonopin 2mg/day. OBJECTIVE: Vital Signs - 24 hr 05/02/19 17:46 Temperature 98.7 F Pulse Rate 55 L Respiratory 18 Rate Blood Pressure 94/60 tremulous ASSESSMENT AND PLAN: OUD- methadone detox- needs residential MAT Benzo use disorder- pt will be maintained on valium 5mg BID and increase as needed
[2019-05-02] MEDS: METHOCARBAMOL 500 MG TABLET PO PRN (21:28)
[2019-05-02] MEDS: THIAMINE HCL 100 MG TABLET (FP) PO SCH (21:28)
[2019-05-02] MEDS: diazePAM 5 MG TABLET PO SCH (21:47)
[2019-05-03] MEDS ORDERED: METHADONE HCL 10 MG TABLET (FOR DETOX USE ONLY) ONE (08:56)
[2019-05-03] MEDS ORDERED: METHADONE HCL 5 MG TABLET (FOR DETOX USE ONLY) ONE (08:57)
[2019-05-03 09:54] LABS: HEMATOCRIT 38.7 % (35.4-49); HEMOGLOBIN 12.9 GM/dL (11.7-16.9); MCH 30.7 pg (25.7-33.7); MCHC 33.3 g/dl (32.0-35.9); MEAN CELL VOLUME 92.3 fl (80-96); MEAN PLT VOLUME 8.2 fl (7.5-11.1); PLATELET COUNT 231 K/MM3 (134-434); RBC 4.19 M/mm3 (4.00-5.60); RDW 13.8 % (11.9-15.9); WHITE BLOOD COUNT 6.1 K/mm3 (4.0-10.0)
[2019-05-03] MEDS ORDERED: METHADONE (DETOX) 20 MG, METHADONE (DETOX) 5 MG PO ONE (10:00)
[2019-05-03 10:13] LABS: ALBUMIN 2.9 g/dl (3.4-5.0); BILIRUBIN,TOTAL 0.5 mg/dL (0.2-1); BLOOD UREA NITROGEN 12.9 mg/dL (7-18); CALCIUM 8.7 mg/dL (8.5-10.1); CREATININE 0.8 mg/dL (0.55-1.3); POTASSIUM 4.5 mmol/L (3.5-5.1); TOT PROT 5.4 g/dl (6.4-8.2)
[2019-05-03] MEDS: diazePAM 5 MG TABLET PO SCH ×2 (10:30→22:03)
[2019-05-03] MEDS: PRENATAL VITAMINS W/ FOLIC ACID TABLET (FP) PO SCH (10:30)
--- NOTE | 2019-05-03 10:50 | PN ---
BHS COWS - Scale Resting Pulse: 0= [place] 80 or Below Sweatin= Chills/Flushing Restless Observation: 0= Sits Still Pupil Size: 1= Pupils >than Normal Bone or Joint Aches: 1= Mild Discomfort Runny Nose/ Eye Tearin= Nasal Congestion GI Upset > 30mins: 1= Stomach Cramp Tremor Observation of Outstretched Hands: 2= Slight Tremor Visible Yawning Observation: 1= 1-2x During Session Anxiety or Irritability: 2=Irritable/Anxious Goose Flesh Skin: 0=Smooth Skin COWS Score: 10 S Progress Note (SOAP) Subjective: 58 years old male admitted on 05/02/19 for opiate withdrawal sx management treated with methadone detox regimen patient tolerated well discuss medication assisted treatment program and narcan from pharmacy patient has received xanax 2 mg po qid monthly last filled 04/10/19 of 120 tablets patient takes valium 5 mg po bid while in opiate detox Objective: 05/03/19 10:56 Vital Signs Temperature 98.3 F 05/03/19 09:09 Pulse Rate 52 L 05/03/19 09:09 Respiratory Rate 18 05/03/19 09:09 Blood Pressure 97/59 L 05/03/19 09:09 O2 Sat by Pulse Oximetry (%) Laboratory Last Values WBC 6.1 K/mm3 (4.0-10.0) 05/03/19 08:00 RBC 4.19 M/mm3 (4.00-5.60) 05/03/19 08:00 Hgb 12.9 GM/dL (11.7-16.9) 05/03/19 08:00 Hct 38.7 % (35.4-49) 05/03/19 08:00 MCV 92.3 fl (80-96) 05/03/19 08:00 MCH 30.7 pg (25.7-33.7) 05/03/19 08:00 MCHC 33.3 g/dl (32.0-35.9) 05/03/19 08:00 RDW 13.8 % (11.9-15.9) 05/03/19 08:00 Plt Count 231 K/MM3 (134-434) 05/03/19 08:00 MPV 8.2 fl (7.5-11.1) 05/03/19 08:00 Sodium 139 mmol/L (136-145) 05/03/19 08:00 Potassium 4.5 mmol/L (3.5-5.1) 05/03/19 08:00 Chloride 106 mmol/L (98-107) 05/03/19 08:00 Carbon Dioxide 28 mmol/L (21-32) 05/03/19 08:00 Anion Gap 5 MMOL/L (8-16) L 05/03/19 08:00 BUN 12.9 mg/dL (7-18) 05/03/19 08:00 Creatinine 0.8 mg/dL (0.55-1.3) 05/03/19 08:00 Est GFR (CKD-EPI)AfAm 114.93 05/03/19 08:00 Est GFR (CKD-EPI)NonAf 99.16 05/03/19 08:00 Random Glucose 79 mg/dL (74-106) 05/03/19 08:00 Calcium 8.7 mg/dL (8.5-10.1) 05/03/19 08:00 Total Bilirubin 0.5 mg/dL (0.2-1) 05/03/19 08:00 AST 12 U/L (15-37) L 05/03/19 08:00 ALT 19 U/L (13-61) 05/03/19 08:00 Alkaline Phosphatase 55 U/L (45-117) 05/03/19 08:00 Total Protein 5.4 g/dl (6.4-8.2) L 05/03/19 08:00 Albumin 2.9 g/dl (3.4-5.0) L 05/03/19 08:00 lab noted Assessment: 05/03/19 10:56 opiate withdrawal sx Plan: methadone detox regimen
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
[2019-05-03] MEDS: hydrOXYzine PAMOATE 25 MG CAPSULE (FP) PO PRN (17:46)
[2019-05-03] MEDS: METHOCARBAMOL 500 MG TABLET PO PRN (17:46)
[2019-05-03] MEDS: cloNIDine HCL 0.1 MG TABLET PO PRN (17:46)
[2019-05-03] MEDS: THIAMINE HCL 100 MG TABLET (FP) PO SCH (22:03)
[2019-05-04] MEDS ORDERED: diazePAM 5 MG TABLET PO SCH (06:00)
[2019-05-04] MEDS ORDERED: METHADONE HCL 10 MG TABLET (FOR DETOX USE ONLY) PO ONE (10:00)
[2019-05-04] MEDS: diazePAM 5 MG TABLET PO SCH ×2 (10:37→22:08)
[2019-05-04] MEDS: PRENATAL VITAMINS W/ FOLIC ACID TABLET (FP) PO SCH (10:37)
[2019-05-04] MEDS: cloNIDine HCL 0.1 MG TABLET PO PRN ×2 (10:39→19:06)
[2019-05-04] MEDS: METHOCARBAMOL 500 MG TABLET PO PRN ×2 (10:39→22:07)
--- NOTE | 2019-05-04 16:33 | PN ---
BHS COWS - Scale Resting Pulse: 0= [place] 80 or Below Sweatin= Chills/Flushing Restless Observation: 1= Difficult to Sit Still Pupil Size: 0= Normal to Room Light Bone or Joint Aches: 2= Severe Diffuse Aches Runny Nose/ Eye Tearin= Runny Nose/Eyes GI Upset > 30mins: 2= Nausea/Diarrhea Tremor Observation of Outstretched Hands: 0= None Yawning Observation: 2= >3x During Session Anxiety or Irritability: 2=Irritable/Anxious Goose Flesh Skin: 0=Smooth Skin COWS Score: 12 BHS Progress Note (SOAP) Subjective: Patient is here for opioid detox c/o of withdrawal sx nausea, sweats, increase po fluids, anxious, interrupted sleep Objective: 05/04/19 16:27 Vital Signs Temperature 97.3 F L 05/04/19 14:03 Pulse Rate 56 L 05/04/19 14:03 Respiratory Rate 18 05/04/19 14:03 Blood Pressure 101/63 05/04/19 14:03 O2 Sat by Pulse Oximetry (%) Laboratory Last Values WBC 6.1 K/mm3 (4.0-10.0) 05/03/19 08:00 RBC 4.19 M/mm3 (4.00-5.60) 05/03/19 08:00 Hgb 12.9 GM/dL (11.7-16.9) 05/03/19 08:00 Hct 38.7 % (35.4-49) 05/03/19 08:00 MCV 92.3 fl (80-96) 05/03/19 08:00 MCH 30.7 pg (25.7-33.7) 05/03/19 08:00 MCHC 33.3 g/dl (32.0-35.9) 05/03/19 08:00 RDW 13.8 % (11.9-15.9) 05/03/19 08:00 Plt Count 231 K/MM3 (134-434) 05/03/19 08:00 MPV 8.2 fl (7.5-11.1) 05/03/19 08:00 Sodium 139 mmol/L (136-145) 05/03/19 08:00 Potassium 4.5 mmol/L (3.5-5.1) 05/03/19 08:00 Chloride 106 mmol/L (98-107) 05/03/19 08:00 Carbon Dioxide 28 mmol/L (21-32) 05/03/19 08:00 Anion Gap 5 MMOL/L (8-16) L 05/03/19 08:00 BUN 12.9 mg/dL (7-18) 05/03/19 08:00 Creatinine 0.8 mg/dL (0.55-1.3) 05/03/19 08:00 Est GFR (CKD-EPI)AfAm 114.93 05/03/19 08:00 Est GFR (CKD-EPI)NonAf 99.16 05/03/19 08:00 Random Glucose 79 mg/dL (74-106) 05/03/19 08:00 Calcium 8.7 mg/dL (8.5-10.1) 05/03/19 08:00 Total Bilirubin 0.5 mg/dL (0.2-1) 05/03/19 08:00 AST 12 U/L (15-37) L 05/03/19 08:00 ALT 19 U/L (13-61) 05/03/19 08:00 Alkaline Phosphatase 55 U/L (45-117) 05/03/19 08:00 Total Protein 5.4 g/dl (6.4-8.2) L 05/03/19 08:00 Albumin 2.9 g/dl (3.4-5.0) L 05/03/19 08:00 RPR Titer Nonreactive (NONREACTIVE) 05/03/19 08:00 labs reviewed Assessment: 05/04/19 16:30 Patient AOx3 no acute distress no adventitious breath sounds full ROM no gait disturbance ambulating in the unit withdrawal sx Plan: increase po fluids continue detox continue to monitor
[2019-05-04] MEDS: THIAMINE HCL 100 MG TABLET (FP) PO SCH (22:07)
[2019-05-05] MEDS ORDERED: METHADONE HCL 10 MG TABLET (FOR DETOX USE ONLY) ONE (09:26)
[2019-05-05] MEDS ORDERED: METHADONE HCL 5 MG TABLET (FOR DETOX USE ONLY) ONE (09:26)
[2019-05-05] MEDS ORDERED: METHADONE (DETOX) 10 MG, METHADONE (DETOX) 5 MG PO ONE (10:00)
[2019-05-05] MEDS: PRENATAL VITAMINS W/ FOLIC ACID TABLET (FP) PO SCH (10:26)
[2019-05-05] MEDS: diazePAM 5 MG TABLET PO SCH ×2 (10:26→22:18)
--- NOTE | 2019-05-05 12:45 | PN ---
S COWS - Scale Resting Pulse: 1= [place] 81-100 Sweatin= Beads of Sweat on Face Restless Observation: 1= Difficult to Sit Still Pupil Size: 0= Normal to Room Light Bone or Joint Aches: 2= Severe Diffuse Aches Runny Nose/ Eye Tearin= None GI Upset > 30mins: 0= None Tremor Observation of Outstretched Hands: 0= None Yawning Observation: 1= 1-2x During Session Anxiety or Irritability: 2=Irritable/Anxious Goose Flesh Skin: 0=Smooth Skin COWS Score: 10 S Progress Note (SOAP) Subjective: c/o anxiety, irritability, muscle aches, and sweats. Objective: 05/05/19 12:45 Vital Signs 05/05/19 05/05/19 07:20 09:21 Temperature 96.8 F L 96.8 F L Pulse Rate 96 H 50 L Respiratory 17 16 Rate Blood Pressure 100/62 127/85 Laboratory Last Values WBC 6.1 K/mm3 (4.0-10.0) 05/03/19 08:00 RBC 4.19 M/mm3 (4.00-5.60) 05/03/19 08:00 Hgb 12.9 GM/dL (11.7-16.9) 05/03/19 08:00 Hct 38.7 % (35.4-49) 05/03/19 08:00 MCV 92.3 fl (80-96) 05/03/19 08:00 MCH 30.7 pg (25.7-33.7) 05/03/19 08:00 MCHC 33.3 g/dl (32.0-35.9) 05/03/19 08:00 RDW 13.8 % (11.9-15.9) 05/03/19 08:00 Plt Count 231 K/MM3 (134-434) 05/03/19 08:00 MPV 8.2 fl (7.5-11.1) 05/03/19 08:00 Sodium 139 mmol/L (136-145) 05/03/19 08:00 Potassium 4.5 mmol/L (3.5-5.1) 05/03/19 08:00 Chloride 106 mmol/L (98-107) 05/03/19 08:00 Carbon Dioxide 28 mmol/L (21-32) 05/03/19 08:00 Anion Gap 5 MMOL/L (8-16) L 05/03/19 08:00 BUN 12.9 mg/dL (7-18) 05/03/19 08:00 Creatinine 0.8 mg/dL (0.55-1.3) 05/03/19 08:00 Est GFR (CKD-EPI)AfAm 114.93 05/03/19 08:00 Est GFR (CKD-EPI)NonAf 99.16 05/03/19 08:00 Random Glucose 79 mg/dL (74-106) 05/03/19 08:00 Calcium 8.7 mg/dL (8.5-10.1) 05/03/19 08:00 Total Bilirubin 0.5 mg/dL (0.2-1) 05/03/19 08:00 AST 12 U/L (15-37) L 05/03/19 08:00 ALT 19 U/L (13-61) 05/03/19 08:00 Alkaline Phosphatase 55 U/L (45-117) 05/03/19 08:00 Total Protein 5.4 g/dl (6.4-8.2) L 05/03/19 08:00 Albumin 2.9 g/dl (3.4-5.0) L 05/03/19 08:00 RPR Titer Nonreactive (NONREACTIVE) 05/03/19 08:00 Labs noted. Assessment: 05/05/19 12:45 AOX3, in no acute respiratory distress. Full ROM, ambulating in the unit. Withdrawal symptoms. Plan: continue detox.
[2019-05-05] MEDS: METHOCARBAMOL 500 MG TABLET PO PRN (15:42)
[2019-05-05] MEDS: THIAMINE HCL 100 MG TABLET (FP) PO SCH (22:19)
[2019-05-05] MEDS: hydrOXYzine PAMOATE 25 MG CAPSULE (FP) PO PRN (22:20)
[2019-05-05] MEDS: MELATONIN 5 MG TABLETS PO PRN (22:20)
[2019-05-06] MEDS ORDERED: METHADONE HCL 10 MG TABLET (FOR DETOX USE ONLY) PO ONE (10:00)
[2019-05-06] MEDS: diazePAM 5 MG TABLET PO SCH ×2 (10:06→22:28)
[2019-05-06] MEDS: PRENATAL VITAMINS W/ FOLIC ACID TABLET (FP) PO SCH (10:06)
[2019-05-06] MEDS: METHOCARBAMOL 500 MG TABLET PO PRN (10:06)
--- NOTE | 2019-05-06 11:53 | PN ---
BHS COWS - Scale Resting Pulse: 0= [place] 80 or Below Sweatin= Chills/Flushing Restless Observation: 1= Difficult to Sit Still Pupil Size: 0= Normal to Room Light Bone or Joint Aches: 1= Mild Discomfort Runny Nose/ Eye Tearin= None GI Upset > 30mins: 0= None Tremor Observation of Outstretched Hands: 1= Tremor [place], Not Seen Yawning Observation: 0= None Anxiety or Irritability: 1=Feels Anxious/Irritable Goose Flesh Skin: 0=Smooth Skin COWS Score: 5 BHS Progress Note (SOAP) Subjective: 58 years old male admitted on 05/02/19 for opiate withdrawal sx management treated with methadone detox regimen feeling better today slept through the night discuss medication assisted 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 Objective: 05/06/19 11:51 Vital Signs Temperature 96.6 F L 05/06/19 09:11 Pulse Rate 51 L 05/06/19 09:11 Respiratory Rate 18 05/06/19 09:11 Blood Pressure 121/86 05/06/19 09:11 O2 Sat by Pulse Oximetry (%) Laboratory Last Values WBC 6.1 K/mm3 (4.0-10.0) 05/03/19 08:00 RBC 4.19 M/mm3 (4.00-5.60) 05/03/19 08:00 Hgb 12.9 GM/dL (11.7-16.9) 05/03/19 08:00 Hct 38.7 % (35.4-49) 05/03/19 08:00 MCV 92.3 fl (80-96) 05/03/19 08:00 MCH 30.7 pg (25.7-33.7) 05/03/19 08:00 MCHC 33.3 g/dl (32.0-35.9) 05/03/19 08:00 RDW 13.8 % (11.9-15.9) 05/03/19 08:00 Plt Count 231 K/MM3 (134-434) 05/03/19 08:00 MPV 8.2 fl (7.5-11.1) 05/03/19 08:00 Sodium 139 mmol/L (136-145) 05/03/19 08:00 Potassium 4.5 mmol/L (3.5-5.1) 05/03/19 08:00 Chloride 106 mmol/L (98-107) 05/03/19 08:00 Carbon Dioxide 28 mmol/L (21-32) 05/03/19 08:00 Anion Gap 5 MMOL/L (8-16) L 05/03/19 08:00 BUN 12.9 mg/dL (7-18) 05/03/19 08:00 Creatinine 0.8 mg/dL (0.55-1.3) 05/03/19 08:00 Est GFR (CKD-EPI)AfAm 114.93 05/03/19 08:00 Est GFR (CKD-EPI)NonAf 99.16 05/03/19 08:00 Random Glucose 79 mg/dL (74-106) 05/03/19 08:00 Calcium 8.7 mg/dL (8.5-10.1) 05/03/19 08:00 Total Bilirubin 0.5 mg/dL (0.2-1) 05/03/19 08:00 AST 12 U/L (15-37) L 05/03/19 08:00 ALT 19 U/L (13-61) 05/03/19 08:00 Alkaline Phosphatase 55 U/L (45-117) 05/03/19 08:00 Total Protein 5.4 g/dl (6.4-8.2) L 05/03/19 08:00 Albumin 2.9 g/dl (3.4-5.0) L 05/03/19 08:00 RPR Titer Nonreactive (NONREACTIVE) 05/03/19 08:00 lab noted Assessment: 05/06/19 11:52 opiate withdrawal sx Plan: continue methadone detox regimen
[2019-05-06] MEDS: hydrOXYzine PAMOATE 25 MG CAPSULE (FP) PO PRN (19:27)
[2019-05-06] MEDS: MELATONIN 5 MG TABLETS PO PRN (22:28)
[2019-05-06] MEDS: THIAMINE HCL 100 MG TABLET (FP) PO SCH (22:28)
[2019-05-07] MEDS ORDERED: METHADONE HCL 5 MG TABLET (FOR DETOX USE ONLY) PO ONE (06:00)
[2019-05-07 06:17] VITALS: BP 99/59; PULSE 55; TEMP 97.6
[2019-05-07] MEDS: PRENATAL VITAMINS W/ FOLIC ACID TABLET (FP) PO SCH (09:36)
[2019-05-07] MEDS: diazePAM 5 MG TABLET PO SCH (09:36)
--- NOTE | 2019-05-07 12:57 | DS ---
[facility] Detox Discharge Summary Admission Date: 05/02/19 Discharge Date: 05/07/19 - History Present History: Opioid Dependence Additional Comments: 58 years old male admitted on 05/02/19 for opiate withdrawal sx management treated with methadone detox regimen patient tolerated well alert oriented x 3 respiratory clear lung bilaterally on auscultation extremities full range of motion skin warm and dry - Physical Exam Results Vital Signs: Vital Signs Temperature 97.6 F 05/07/19 06:16 Pulse Rate 55 L 05/07/19 06:16 Respiratory Rate 18 05/07/19 06:16 Blood Pressure 99/59 L 05/07/19 06:16 O2 Sat by Pulse Oximetry (%) Pertinent Admission Physical Exam Findings: opiate withdrawal sx Laboratory Last Values WBC 6.1 K/mm3 (4.0-10.0) 05/03/19 08:00 RBC 4.19 M/mm3 (4.00-5.60) 05/03/19 08:00 Hgb 12.9 GM/dL (11.7-16.9) 05/03/19 08:00 Hct 38.7 % (35.4-49) 05/03/19 08:00 MCV 92.3 fl (80-96) 05/03/19 08:00 MCH 30.7 pg (25.7-33.7) 05/03/19 08:00 MCHC 33.3 g/dl (32.0-35.9) 05/03/19 08:00 RDW 13.8 % (11.9-15.9) 05/03/19 08:00 Plt Count 231 K/MM3 (134-434) 05/03/19 08:00 MPV 8.2 fl (7.5-11.1) 05/03/19 08:00 Sodium 139 mmol/L (136-145) 05/03/19 08:00 Potassium 4.5 mmol/L (3.5-5.1) 05/03/19 08:00 Chloride 106 mmol/L (98-107) 05/03/19 08:00 Carbon Dioxide 28 mmol/L (21-32) 05/03/19 08:00 Anion Gap 5 MMOL/L (8-16) L 05/03/19 08:00 BUN 12.9 mg/dL (7-18) 05/03/19 08:00 Creatinine 0.8 mg/dL (0.55-1.3) 05/03/19 08:00 Est GFR (CKD-EPI)AfAm 114.93 05/03/19 08:00 Est GFR (CKD-EPI)NonAf 99.16 05/03/19 08:00 Random Glucose 79 mg/dL (74-106) 05/03/19 08:00 Calcium 8.7 mg/dL (8.5-10.1) 05/03/19 08:00 Total Bilirubin 0.5 mg/dL (0.2-1) 05/03/19 08:00 AST 12 U/L (15-37) L 05/03/19 08:00 ALT 19 U/L (13-61) 05/03/19 08:00 Alkaline Phosphatase 55 U/L (45-117) 05/03/19 08:00 Total Protein 5.4 g/dl (6.4-8.2) L 05/03/19 08:00 Albumin 2.9 g/dl (3.4-5.0) L 05/03/19 08:00 RPR Titer Nonreactive (NONREACTIVE) 05/03/19 08:00 lab noted - Treatment Hospital Course: Detox Protocol Followed, Detoxed Safely, Responded well, Discharged Condition Good, Rehab Referral Accepted Patient has Accepted a Rehab Referral to: medication assisted treatment program - Medication Discharge Medications: Ambulatory Orders Alprazolam [Xanax] 2 mg PO QID PRN 04/11/19 Bupropion HCl [Wellbutrin Sr] 150 mg PO BID 04/11/19 Clonazepam [Klonopin] 2 mg PO HS 04/11/19 Clonidine HCl [Catapres] 0.2 mg PO BID 04/11/19 Dextroamphetamine/Amphetamine [Adderall Xr 30 mg Capsule] 30 mg PO ONCE Lamotrigine [Lamictal] 200 mg PO BID 04/11/19 Lurasidone HCl [Latuda] 80 mg PO HS 04/11/19 Quetiapine Fumarate [Seroquel] 150 mg PO HS 04/11/19 Trazodone HCl 150 mg PO HS 04/11/19 Naloxone HCl [Narcan] 4 mg NS ASDIR PRN #1 spray 05/03/19 - Diagnosis (1) Xanax use disorder, severe, dependence Status: Chronic (2) Opioid use disorder Status: Acute (3) Substance induced mood disorder Status: Suspected - AMA Did Patient Leave Against Medical Advice: No COWS (PN) - Opiate Withdrawal Resting Pulse: 0= [place] 80 or Below Sweatin= Chills/Flushing Restless Observation: 0= Sits Still Pupil Size: 0= Normal to Room Light Bone or Joint Aches: 0= None Runny Nose/ Eye Tearin= None GI Upset > 30mins: 1= Stomach Cramp Tremor Observation of Outstretched Hands: 0= None Yawning Observation: 0= None Anxiety or Irritability: 0= None Goose Flesh Skin: 0=Smooth Skin COWS Score: 2
== END 2019-05-07 08:39 | disposition home or self-care (01) | DRG 897 ==
LOC: YASAS 15:49 → Y3N 20:29
PROVIDERS: ADMIT Allergy & Immunology; ATTEND Allergy & Immunology
PROC: HZ2ZZZZ Detoxification Services for Substance Abuse Treatment (ICD-10-PCS; principal; 2019-05-02)
DX: F11.23 Opioid dependence with withdrawal (principal); F14.20 Cocaine dependence, uncomplicated; F19.282 Other psychoactive substance dependence with psychoactive substance-induced sleep disorder; F13.230 Sedative, hypnotic or anxiolytic dependence with withdrawal, uncomplicated; F12.20 Cannabis dependence, uncomplicated; F17.210 Nicotine dependence, cigarettes, uncomplicated; F19.24 Other psychoactive substance dependence with psychoactive substance-induced mood disorder; F31.9 Bipolar disorder, unspecified; F41.0 Panic disorder [episodic paroxysmal anxiety]; F90.9 Attention-deficit hyperactivity disorder, unspecified type; J44.9 Chronic obstructive pulmonary disease, unspecified; M54.5 Low back pain; G89.29 Other chronic pain; Z88.2 Allergy status to sulfonamides
CPT/HCPCS: 36415; 80053; 85027; 86593; J0735

== ENCOUNTER 2019-06-21 12:33 | Inpatient (IN) | payer OTHER ==
[2019-06-21 16:57] VITALS: BMI 22.3
--- NOTE | 2019-06-21 17:16 | HP ---
COWS - Scale Resting Pulse: 0= [place] 80 or Below Sweatin= Beads of Sweat on Face Restless Observation: 3= Extraneous Movement Pupil Size: 0= Normal to Room Light Bone or Joint Aches: 4=Acute Joint/Muscle Pain Runny Nose/ Eye Tearin= None GI Upset > 30mins: 1= Stomach Cramp Tremor Observation: 2= Slight Tremor Visible Yawning Observation: 2= >3x During Session Anxiety or Irritability: 2=Irritable/Anxious Goose Flesh Skin: 0=Smooth Skin COWS Score: 17 CIWA Score - Admission Criteria OASAS Guidelines: Admission for Medically Managed Detox: Requires at least one of the followin. CIWA greater than 12 2. Seizures within the past 24 hours 3. Delirium tremens within the past 24 hours 4. Hallucinations within the past 24 hours 5. Acute intervention needed for co occurring medical disorder 6. Acute intervention needed for co occurring psychiatric disorder 7. Severe withdrawal that cannot be handled at a lower level of care (continued vomiting, continued diarrhea, abnormal vital signs) requiring intravenous medication and/or fluids 8. Admitting History and Physical - Admission Chief Complaint: "I'm here for heroin detox". History of Present Illness: A 58year old male with history of bipolar, MDD, ADHD, and anxiety disorder who presents here today requesting for heroin detox. Pt's last visit here was on 05/02/2019 to 05/07/2019. Pt reports that he uses 20-22bags of heroin daily by sniffing. Pt also reports that he used to be on suboxone 4months ago but stopped because he couldn't afford the financial cost involved to get to the program daily. Pt states several attempts to remain sober has failed but this time plans to continue with rehab management. Pt states he lives with his son and daughter. Noted small old dry wound to left deltoid. Pt states he does not know how he got the wound but has been there for a while now. Denies any pain at the site. Search Terms: taj Rodriguez, 1960 Search Date: 06/21/2019 05:05:41 PM The Drug Utilization Report below displays all of the controlled substance prescriptions, if any, that your patient has filled in the last twelve months. The information displayed on this report is compiled from pharmacy submissions to the Department, and accurately reflects the information as submitted by the pharmacies. This report was requested by: Svetlana Ryan | Reference #: [id number] Others' Prescriptions Patient Name: Taj Rodriguez Date: 1960 Address: [address] [place] [address] Sex: Male Rx Written Rx Dispensed Drug Quantity Days Supply Prescriber Name 05/11/2019 05/15/2019 dextroamp-amphetamin 30 mg tab 60 30 Tramaine Sanchez MD 05/11/2019 05/15/2019 dextroamp-amphetamin 15 mg tab 60 30 Tramaine Sanchez MD 05/11/2019 05/15/2019 alprazolam 2 mg tablet 120 30 Tramaine Sanchez MD 05/11/2019 05/15/2019 clonazepam 2 mg odt 30 30 Tramaine Sanchez MD History Source: Patient Limitations to Obtaining History: No Limitations - Past Medical History Pulmonary: Yes: COPD Psych: Yes: Addictions, Anxiety, Bipolar, Other (ADHD, MMD) Musculoskeletal: Yes: Chronic low back pain - Smoking History Smoking history: Current every day smoker Have you smoked in the past 12 months: Yes Aproximately how many cigarettes per day: 10 - Alcohol/Substance Use Hx Alcohol Use: No History of Substance Use: reports: Cocaine, Heroin, Marijuana - Social History Usual Living Arrangement: Yes: Other (with son and daughter) Do you think of yourself as: Straight/Heterosexual ADL: Independent History of Recent Travel: No Admission [facility] Allergies/Adverse Reactions: Allergies Allergy/AdvReac Type Severity Reaction Status Date / Time Sulfa (Sulfonamide Allergy Severe Hives Verified 06/21/19 16:45 Antibiotics) Exam Limitations: No Limitations - Ebola screening Have you traveled outside of the country in the last 21 days: No Have you had contact with anyone from an Ebola affected area: No Have you been sick,other than usual withdrawal symptoms: No Do you have a fever: No - Review of Systems Constitutional: Chills, Night Sweats EENT: reports: Blurred Vision Respiratory: reports: No Symptoms reported Cardiac: reports: No Symptoms Reported GI: reports: Nausea : reports: No Symptoms Reported Musculoskeletal: reports: Back Pain, Muscle Pain Integumentary: reports: No Symptoms Reported Neuro: reports: Headache, Tremors Endocrine: reports: No Symptoms Reported Hematology: reports: No Symptoms Reported Psychiatric: reports: Mood/Affect Appropiate, Anxious Other Systems: Reviewed and Negative Patient History - Patient Medical History Hx Asthma: No Hx Chronic Obstructive Pulmonary Disease (COPD): Yes Hx Cancer: No Hx Cardiac Disorders: No Hx Congestive Heart Failure: No Hx Hypertension: No Hx Seizures: No Hx Diabetes: No Hx Gastrointestinal Disorders: No Hx Liver Disease: No Hx Genitourinary Disorders: No Hx Sexually Transmitted Disorders: No Hx Renal Disease (ESRD): No Hx Thyroid Disease: No Hx Human Immunodeficiency Virus (HIV): No Hx Hepatitis C: No Hx Depression: Yes Hx Suicide Attempt: No Hx Bipolar Disorder: Yes Hx Schizophrenia: No - Patient Surgical History Past Surgical History: No Hx Neurologic Surgery: No Hx Cataract Extraction: No Hx Cardiac Surgery: No Hx Lung Surgery: No Hx Breast Surgery: No Hx Breast Biopsy: No Hx Abdominal Surgery: No Hx Appendectomy: No Hx Cholecystectomy: No Hx Genitourinary Surgery: No Hx Section: No Hx Orthopedic Surgery: No Anesthesia Reaction: No - PPD History Previous Implant?: Yes Documented Results: Negative w/proof Date: 05/04/19 PPD to be Administered?: No - Smoking Cessation Smoking history: Current every day smoker Have you smoked in the past 12 months: Yes Aproximately how many cigarettes per day: 10 Hx Chewing Tobacco Use: No Initiated information on smoking cessation: Yes 'Breaking Loose' booklet given: 06/21/19 - Substance & Tx. History Hx Alcohol Use: No Hx Substance Use: Yes Substance Use Type: Cocaine, Heroin, Marijuana Hx Substance Use Treatment: Yes (Was on suboxone 4months ago but stopped because couldn't afford the cost.) - Substances abused Heroin Substance route: Inhalation Frequency: Daily Amount used: 12bags Age of first use: 55 Date of last use: 06/21/19 Cocaine Substance route: Inhalation Frequency: Daily Amount used: 2gm Age of first use: 37 Date of last use: 06/20/19 Admission Physical Exam BHS - Vital Signs Vital Signs: Vital Signs - 24 hr 06/21/19 16:40 Temperature 98.1 F Pulse Rate 60 Respiratory 18 Rate Blood Pressure 133/84 - Physical General Appearance: Yes: No Apparent Distress, Tremorous, Irritable, Sweating, Anxious HEENTM: Yes: EOMI, Hearing grossly Normal, Normocephalic, Normal Voice, ONESIMO, Pharynx Normal Respiratory: Yes: Chest Non-Tender, Lungs Clear, Normal Breath Sounds, No Respiratory Distress Neck: Yes: No masses,lesions,Nodules, Trachea in good position Breast: Yes: Within Normal Limits Cardiology: Yes: Regular Rhythm, Regular Rate, S1, S2 Abdominal: Yes: Normal Bowel Sounds, Non Tender, Flat, Soft Genitourinary: Yes: Within Normal Limits Back: Yes: Normal Inspection Musculoskeletal: Yes: full range of Motion, Gait Steady Extremities: Yes: Normal Capillary Refill, Normal Range of Motion, Tremors Neurological: Yes: band tacker II-XII NML intact, Alert, Normal Response Integumentary: Yes: Dry, Warm Lymphatic: Yes: Other (small old dry wound to left deltoid. Pt states he does not know how he got the wound but has been there for a while now.Denies any pain at the site.) - Diagnostic (1) Cocaine use disorder Current Visit: No Status: Chronic (2) Opioid use disorder Current Visit: No Status: Chronic (3) Sedative, hypnotic or anxiolytic dependence, uncomplicated Current Visit: No Status: Chronic (4) ADHD Current Visit: No Status: Chronic (5) Bipolar disorder Current Visit: No Status: Chronic (6) Xanax use disorder, severe, dependence Current Visit: No Status: Chronic (7) Opiate withdrawal Current Visit: Yes Status: Acute Cleared for Admission [facility] - Detox or Rehab [facility] Level of Care: Medically Managed Detox Regimen/Protocol: Methadone Claeared for Rehab Admission: No Breathalyzer - Breathalyzer Breathalyzer: 0 Urine Drug Screen - Test Device Lot number: [id number] Expiration date: 12/26/20 - Control Is test valid?: Yes - Results Drug screen NEGATIVE: No Urine drug screen results: THC-Marijuana, DINAH-Cocaine, FEN-Fentanyl, MOP-Opiates , BZO-Benzodiazepines Inpatient Rehab Admission - Rehab Decision to Admit Inpatient rehab admission?: No
[2019-06-21] MEDS ORDERED: MAGNESIUM HYDROX 2400MG/30ML ORAL SUSPENSION 30 ML CUP PO PRN (17:28)
[2019-06-21] MEDS ORDERED: ACETAMINOPHEN 325 MG TABLET (FP) PO PRN ×2 (17:28)
[2019-06-21] MEDS ORDERED: NICOTINE POLACRILEX 2 MG GUM BUC PRN (17:28)
[2019-06-21] MEDS ORDERED: ONDANSETRON *ODT* 4 MG TABLET SL PRN (17:28)
[2019-06-21] MEDS ORDERED: guaiFENesin 200 MG/10 ML 10 ML UNIT-DOSE CUPS PO PRN (17:28)
[2019-06-21] MEDS ORDERED: MAGNESIUM CITRATE 300 ML BOTTLE PO PRN (17:28)
[2019-06-21] MEDS ORDERED: MELATONIN 5 MG TABLETS PO PRN (17:28)
[2019-06-21] MEDS ORDERED: MENTHOL/PHENOL 1 EACH UD MM PRN (17:28)
[2019-06-21] MEDS ORDERED: BISMUTH SUBSALICYLATE 524 MG/30 ML UD PO PRN (17:28)
[2019-06-21] MEDS ORDERED: P-EPHED 60MG/TRIPROLIDI 2.5MG TABLET PO PRN (17:28)
[2019-06-21] MEDS ORDERED: MAG HYDROX/AL HYDROX/SIMETH 30 ML UNIT-DOSE CUP PO PRN (17:28)
[2019-06-21] MEDS ORDERED: METHADONE HCL 10 MG TABLET (FOR DETOX USE ONLY) PO ONE (17:32)
[2019-06-21] MEDS: clonazePAM 0.5 MG TABLET PO PRN (19:34)
[2019-06-21] MEDS: THIAMINE HCL 100 MG TABLET (FP) PO SCH (22:03)
[2019-06-21] MEDS: METHOCARBAMOL 500 MG TABLET PO PRN (22:04)
[2019-06-21] MEDS: cloNIDine HCL 0.1 MG TABLET PO PRN (22:04)
[2019-06-22] MEDS ORDERED: METHADONE HCL 10 MG TABLET (FOR DETOX USE ONLY) ONE (09:30)
[2019-06-22] MEDS ORDERED: METHADONE HCL 5 MG TABLET (FOR DETOX USE ONLY) ONE (09:31)
[2019-06-22] MEDS ORDERED: METHADONE (DETOX) 20 MG, METHADONE (DETOX) 5 MG PO ONE (10:00)
[2019-06-22 10:02] LABS: ALBUMIN 3.1 g/dl (3.4-5.0); BILIRUBIN,TOTAL 0.5 mg/dL (0.2-1); BLOOD UREA NITROGEN 17.4 mg/dL (7-18); CALCIUM 8.7 mg/dL (8.5-10.1); CREATININE 0.7 mg/dL (0.55-1.3); POTASSIUM 4.5 mmol/L (3.5-5.1); TOT PROT 5.6 g/dl (6.4-8.2)
[2019-06-22] MEDS: PRENATAL VITAMINS W/ FOLIC ACID TABLET (FP) PO SCH (10:22)
[2019-06-22] MEDS: NICOTINE 14 MG/24 HOURS TOPICAL PATCH TD SCH (10:23)
[2019-06-22] MEDS: clonazePAM 0.5 MG TABLET PO PRN ×2 (10:24→17:32)
--- NOTE | 2019-06-22 12:08 | PN ---
BHS COWS - Scale Resting Pulse: 0= [place] 80 or Below Sweatin= Chills/Flushing Restless Observation: 1= Difficult to Sit Still Pupil Size: 0= Normal to Room Light Bone or Joint Aches: 1= Mild Discomfort Runny Nose/ Eye Tearin= Runny Nose/Eyes GI Upset > 30mins: 0= None Tremor Observation of Outstretched Hands: 1= Tremor [place], Not Seen Yawning Observation: 1= 1-2x During Session Anxiety or Irritability: 2=Irritable/Anxious Goose Flesh Skin: 0=Smooth Skin COWS Score: 9 BHS Progress Note (SOAP) Subjective: Patient is a 58 yo male with hx of opioid dependence on Methadone detox protocol c/o sweats, body soreness, back pain. Objective: 06/22/19 12:08 Vital Signs Temperature 97.6 F 06/22/19 09:12 Pulse Rate 57 L 06/22/19 09:12 Respiratory Rate 18 06/22/19 09:12 Blood Pressure 93/66 06/22/19 09:12 O2 Sat by Pulse Oximetry (%) Laboratory Last Values Sodium 142 mmol/L (136-145) 06/22/19 07:30 Potassium 4.5 mmol/L (3.5-5.1) 06/22/19 07:30 Chloride 106 mmol/L (98-107) 06/22/19 07:30 Carbon Dioxide 31 mmol/L (21-32) 06/22/19 07:30 Anion Gap 5 MMOL/L (8-16) L 06/22/19 07:30 BUN 17.4 mg/dL (7-18) 06/22/19 07:30 Creatinine 0.7 mg/dL (0.55-1.3) 06/22/19 07:30 Est GFR (CKD-EPI)AfAm 121.41 06/22/19 07:30 Est GFR (CKD-EPI)NonAf 104.76 06/22/19 07:30 Random Glucose 78 mg/dL (74-106) 06/22/19 07:30 Calcium 8.7 mg/dL (8.5-10.1) 06/22/19 07:30 Total Bilirubin 0.5 mg/dL (0.2-1) 06/22/19 07:30 AST 11 U/L (15-37) L 06/22/19 07:30 ALT 19 U/L (13-61) 06/22/19 07:30 Alkaline Phosphatase 55 U/L (45-117) 06/22/19 07:30 Total Protein 5.6 g/dl (6.4-8.2) L 06/22/19 07:30 Albumin 3.1 g/dl (3.4-5.0) L 06/22/19 07:30 Assessment: 06/22/19 12:11 Patient Aox3 no acute distress EENT WNL Full ROM no gait disturbance withdrawal sx Plan: Patient educated on MAT, reports plans to resume bup therapy in rehab increase fluids continue detox continue to monitor
--- NOTE | 2019-06-22 13:45 | EKG ---
Test Reason : Blood Pressure : / mmHG Vent. Rate : 056 BPM Atrial Rate : 056 BPM P-R Int : 174 ms QRS Dur : 094 ms QT Int : 466 ms P-R-T Axes : 038 016 046 degrees QTc Int : 449 ms SINUS BRADYCARDIA NONSPECIFIC INTRAVENTRICULAR CONDUCTION DEFECT NO PREVIOUS ECGS AVAILABLE Confirmed by KENDALL PALACIOS MD ([id number]) on 06/22/2019 1:44:57 PM Referred By: Confirmed By:KENDALL PALACIOS MD
[2019-06-22 14:31] LABS: HEMATOCRIT 41.5 % (35.4-49); HEMOGLOBIN 13.9 GM/dL (11.7-16.9); MCH 30.9 pg (25.7-33.7); MCHC 33.4 g/dl (32.0-35.9); MEAN CELL VOLUME 92.4 fl (80-96); PLATELET COUNT 263 K/MM3 (134-434); RBC 4.49 M/mm3 (4.00-5.60); RDW 14.5 % (11.9-15.9); WHITE BLOOD COUNT 6.7 K/mm3 (4.0-10.0)
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
[2019-06-22] MEDS: METHOCARBAMOL 500 MG TABLET PO PRN (22:10)
[2019-06-22] MEDS: hydrOXYzine PAMOATE 25 MG CAPSULE (FP) PO PRN (22:10)
[2019-06-22] MEDS: THIAMINE HCL 100 MG TABLET (FP) PO SCH (22:10)
[2019-06-23] MEDS: clonazePAM 0.5 MG TABLET PO PRN ×4 (02:42→23:29)
[2019-06-23] MEDS ORDERED: METHADONE HCL 10 MG TABLET (FOR DETOX USE ONLY) PO ONE (10:00)
[2019-06-23] MEDS: PRENATAL VITAMINS W/ FOLIC ACID TABLET (FP) PO SCH (10:04)
[2019-06-23] MEDS: IBUPROFEN 400 MG TABLET (FP) PO PRN ×2 (10:05→22:15)
[2019-06-23] MEDS: NICOTINE 14 MG/24 HOURS TOPICAL PATCH TD SCH (10:06)
--- NOTE | 2019-06-23 10:19 | PN ---
BHS COWS - Scale Resting Pulse: 0= [place] 80 or Below Sweatin= Chills/Flushing Restless Observation: 1= Difficult to Sit Still Pupil Size: 0= Normal to Room Light Bone or Joint Aches: 2= Severe Diffuse Aches Runny Nose/ Eye Tearin= None GI Upset > 30mins: 1= Stomach Cramp Tremor Observation of Outstretched Hands: 0= None Yawning Observation: 1= 1-2x During Session Anxiety or Irritability: 2=Irritable/Anxious Goose Flesh Skin: 0=Smooth Skin COWS Score: 8 S Progress Note (SOAP) Subjective: c/o stomach cramp, anxiety, muscle aches, and chills. Objective: 06/23/19 10:17 Vital Signs 06/23/19 06/23/19 06/23/19 03:30 06:15 09:03 Temperature 97.4 F L 98.6 F Pulse Rate 61 61 Respiratory 18 18 16 Rate Blood Pressure 102/68 128/84 Laboratory Last Values WBC 6.7 K/mm3 (4.0-10.0) 06/22/19 11:00 RBC 4.49 M/mm3 (4.00-5.60) 06/22/19 11:00 Hgb 13.9 GM/dL (11.7-16.9) 06/22/19 11:00 Hct 41.5 % (35.4-49) 06/22/19 11:00 MCV 92.4 fl (80-96) 06/22/19 11:00 MCH 30.9 pg (25.7-33.7) 06/22/19 11:00 MCHC 33.4 g/dl (32.0-35.9) 06/22/19 11:00 RDW 14.5 % (11.9-15.9) 06/22/19 11:00 Plt Count 263 K/MM3 (134-434) 06/22/19 11:00 MPV 8.0 fl (7.5-11.1) 06/22/19 11:00 Sodium 142 mmol/L (136-145) 06/22/19 07:30 Potassium 4.5 mmol/L (3.5-5.1) 06/22/19 07:30 Chloride 106 mmol/L (98-107) 06/22/19 07:30 Carbon Dioxide 31 mmol/L (21-32) 06/22/19 07:30 Anion Gap 5 MMOL/L (8-16) L 06/22/19 07:30 BUN 17.4 mg/dL (7-18) 06/22/19 07:30 Creatinine 0.7 mg/dL (0.55-1.3) 06/22/19 07:30 Est GFR (CKD-EPI)AfAm 121.41 06/22/19 07:30 Est GFR (CKD-EPI)NonAf 104.76 06/22/19 07:30 Random Glucose 78 mg/dL (74-106) 06/22/19 07:30 Calcium 8.7 mg/dL (8.5-10.1) 06/22/19 07:30 Total Bilirubin 0.5 mg/dL (0.2-1) 06/22/19 07:30 AST 11 U/L (15-37) L 06/22/19 07:30 ALT 19 U/L (13-61) 06/22/19 07:30 Alkaline Phosphatase 55 U/L (45-117) 06/22/19 07:30 Total Protein 5.6 g/dl (6.4-8.2) L 06/22/19 07:30 Albumin 3.1 g/dl (3.4-5.0) L 06/22/19 07:30 RPR Titer Nonreactive (NONREACTIVE) 06/22/19 07:30 Labs noted. Assessment: 06/23/19 10:18 AOX3, in no acute respiratory distress. Full ROM, ambulating in the unit. Withdrawal symptoms. Plan: continue detox.
[2019-06-23] MEDS: cloNIDine HCL 0.1 MG TABLET PO PRN (17:12)
[2019-06-23] MEDS: METHOCARBAMOL 500 MG TABLET PO PRN (22:15)
[2019-06-23] MEDS: THIAMINE HCL 100 MG TABLET (FP) PO SCH (22:15)
[2019-06-23] MEDS: hydrOXYzine PAMOATE 25 MG CAPSULE (FP) PO PRN (22:16)
[2019-06-24] MEDS: clonazePAM 0.5 MG TABLET PO PRN ×3 (07:48→22:04)
[2019-06-24] MEDS ORDERED: METHADONE HCL 5 MG TABLET (FOR DETOX USE ONLY) ONE (09:12)
[2019-06-24] MEDS ORDERED: METHADONE HCL 10 MG TABLET (FOR DETOX USE ONLY) ONE (09:12)
--- NOTE | 2019-06-24 09:25 | PN ---
S COWS - Scale Resting Pulse: 0= [place] 80 or Below Sweatin= Chills/Flushing Restless Observation: 0= Sits Still Pupil Size: 0= Normal to Room Light Bone or Joint Aches: 1= Mild Discomfort Runny Nose/ Eye Tearin= None GI Upset > 30mins: 1= Stomach Cramp Tremor Observation of Outstretched Hands: 1= Tremor [place], Not Seen Yawning Observation: 0= None Anxiety or Irritability: 1=Feels Anxious/Irritable Goose Flesh Skin: 0=Smooth Skin COWS Score: 5 S Progress Note (SOAP) Subjective: 58 years old male admitted on 06/21/19 for opiate withdrawal sx management treating with methadone detox regimen reports opiates symptoms are well managed but anxiety and anxiousness from not taking xanax that he is taking xanax 2mg po four times daily patient received klonopin 0.5 mg po around 7 am and one dose of viatrail 50mg now psychiatric referral Objective: 06/24/19 09:35 Vital Signs Temperature 97 F L 06/24/19 09:16 Pulse Rate 70 06/24/19 09:16 Respiratory Rate 18 06/24/19 09:16 Blood Pressure 113/65 06/24/19 09:16 O2 Sat by Pulse Oximetry (%) Laboratory Last Values WBC 6.7 K/mm3 (4.0-10.0) 06/22/19 11:00 RBC 4.49 M/mm3 (4.00-5.60) 06/22/19 11:00 Hgb 13.9 GM/dL (11.7-16.9) 06/22/19 11:00 Hct 41.5 % (35.4-49) 06/22/19 11:00 MCV 92.4 fl (80-96) 06/22/19 11:00 MCH 30.9 pg (25.7-33.7) 06/22/19 11:00 MCHC 33.4 g/dl (32.0-35.9) 06/22/19 11:00 RDW 14.5 % (11.9-15.9) 06/22/19 11:00 Plt Count 263 K/MM3 (134-434) 06/22/19 11:00 MPV 8.0 fl (7.5-11.1) 06/22/19 11:00 Sodium 142 mmol/L (136-145) 06/22/19 07:30 Potassium 4.5 mmol/L (3.5-5.1) 06/22/19 07:30 Chloride 106 mmol/L (98-107) 06/22/19 07:30 Carbon Dioxide 31 mmol/L (21-32) 06/22/19 07:30 Anion Gap 5 MMOL/L (8-16) L 06/22/19 07:30 BUN 17.4 mg/dL (7-18) 06/22/19 07:30 Creatinine 0.7 mg/dL (0.55-1.3) 06/22/19 07:30 Est GFR (CKD-EPI)AfAm 121.41 06/22/19 07:30 Est GFR (CKD-EPI)NonAf 104.76 06/22/19 07:30 Random Glucose 78 mg/dL (74-106) 06/22/19 07:30 Calcium 8.7 mg/dL (8.5-10.1) 06/22/19 07:30 Total Bilirubin 0.5 mg/dL (0.2-1) 06/22/19 07:30 AST 11 U/L (15-37) L 06/22/19 07:30 ALT 19 U/L (13-61) 06/22/19 07:30 Alkaline Phosphatase 55 U/L (45-117) 06/22/19 07:30 Total Protein 5.6 g/dl (6.4-8.2) L 06/22/19 07:30 Albumin 3.1 g/dl (3.4-5.0) L 06/22/19 07:30 RPR Titer Nonreactive (NONREACTIVE) 06/22/19 07:30 lab noted RR [address] 70 Assessment: 06/24/19 09:36 opiate withdrawal Plan: methadone regimen
[2019-06-24] MEDS ORDERED: LOPERAMIDE HCL 2 MG CAPSULE PO ONE (09:31)
[2019-06-24] MEDS ORDERED: hydrOXYzine PAMOATE 50 MG CAPSULE (FP) PO ONE (09:34)
[2019-06-24] MEDS ORDERED: METHADONE (DETOX) 10 MG, METHADONE (DETOX) 5 MG PO ONE (10:00)
[2019-06-24] MEDS: PRENATAL VITAMINS W/ FOLIC ACID TABLET (FP) PO SCH (10:17)
[2019-06-24] MEDS: NICOTINE 14 MG/24 HOURS TOPICAL PATCH TD SCH (10:19)
[2019-06-24] MEDS: IBUPROFEN 400 MG TABLET (FP) PO PRN (17:23)
[2019-06-24] MEDS: THIAMINE HCL 100 MG TABLET (FP) PO SCH (22:04)
[2019-06-24] MEDS: METHOCARBAMOL 500 MG TABLET PO PRN (22:04)
[2019-06-24] MEDS: hydrOXYzine PAMOATE 25 MG CAPSULE (FP) PO PRN (22:04)
[2019-06-25] MEDS: clonazePAM 0.5 MG TABLET PO PRN ×3 (07:57→21:34)
[2019-06-25] MEDS: NICOTINE 14 MG/24 HOURS TOPICAL PATCH TD SCH (09:59)
[2019-06-25] MEDS: PRENATAL VITAMINS W/ FOLIC ACID TABLET (FP) PO SCH (09:59)
[2019-06-25] MEDS: hydrOXYzine PAMOATE 25 MG CAPSULE (FP) PO PRN ×2 (09:59→21:34)
[2019-06-25] MEDS ORDERED: METHADONE HCL 10 MG TABLET (FOR DETOX USE ONLY) PO ONE (10:00)
--- NOTE | 2019-06-25 10:29 | PN ---
[facility] COWS - Scale Resting Pulse: 0= [place] 80 or Below Sweatin= No chills or Flushing Restless Observation: 0= Sits Still Pupil Size: 0= Normal to Room Light Bone or Joint Aches: 1= Mild Discomfort Runny Nose/ Eye Tearin= None GI Upset > 30mins: 0= None Tremor Observation of Outstretched Hands: 0= None Yawning Observation: 0= None Anxiety or Irritability: 1=Feels Anxious/Irritable Goose Flesh Skin: 0=Smooth Skin COWS Score: 2 [facility] Progress Note (SOAP) Subjective: 58 years old male admitted on 06/21/19 for opiate withdrawal sx management treating with methadone detox regiment reports taking xanax 2 mg po qid daily receiving monthly refilled requests to be seen by a psychiatrist that "I am anxious" discussed medication assisted treatment program "they screw my aftercare" encourage the patient walks in to medication assisted treatment program for intake admission Objective: 06/25/19 10:31 Vital Signs Temperature 97.5 F L 06/25/19 09:20 Pulse Rate 64 06/25/19 09:20 Respiratory Rate 18 06/25/19 09:20 Blood Pressure 98/67 06/25/19 09:20 O2 Sat by Pulse Oximetry (%) Laboratory Last Values WBC 6.7 K/mm3 (4.0-10.0) 06/22/19 11:00 RBC 4.49 M/mm3 (4.00-5.60) 06/22/19 11:00 Hgb 13.9 GM/dL (11.7-16.9) 06/22/19 11:00 Hct 41.5 % (35.4-49) 06/22/19 11:00 MCV 92.4 fl (80-96) 06/22/19 11:00 MCH 30.9 pg (25.7-33.7) 06/22/19 11:00 MCHC 33.4 g/dl (32.0-35.9) 06/22/19 11:00 RDW 14.5 % (11.9-15.9) 06/22/19 11:00 Plt Count 263 K/MM3 (134-434) 06/22/19 11:00 MPV 8.0 fl (7.5-11.1) 06/22/19 11:00 Sodium 142 mmol/L (136-145) 06/22/19 07:30 Potassium 4.5 mmol/L (3.5-5.1) 06/22/19 07:30 Chloride 106 mmol/L (98-107) 06/22/19 07:30 Carbon Dioxide 31 mmol/L (21-32) 06/22/19 07:30 Anion Gap 5 MMOL/L (8-16) L 06/22/19 07:30 BUN 17.4 mg/dL (7-18) 06/22/19 07:30 Creatinine 0.7 mg/dL (0.55-1.3) 06/22/19 07:30 Est GFR (CKD-EPI)AfAm 121.41 06/22/19 07:30 Est GFR (CKD-EPI)NonAf 104.76 06/22/19 07:30 Random Glucose 78 mg/dL (74-106) 06/22/19 07:30 Calcium 8.7 mg/dL (8.5-10.1) 06/22/19 07:30 Total Bilirubin 0.5 mg/dL (0.2-1) 06/22/19 07:30 AST 11 U/L (15-37) L 06/22/19 07:30 ALT 19 U/L (13-61) 06/22/19 07:30 Alkaline Phosphatase 55 U/L (45-117) 06/22/19 07:30 Total Protein 5.6 g/dl (6.4-8.2) L 06/22/19 07:30 Albumin 3.1 g/dl (3.4-5.0) L 06/22/19 07:30 RPR Titer Nonreactive (NONREACTIVE) 06/22/19 07:30 lab noted health teaching on risks of xanax mixed with opiate based substance Assessment: 06/25/19 10:32 opiate withdrawal Plan: methadone regiment
--- NOTE | 2019-06-25 17:21 | PN ---
Psychiatric Progress Note Vital Signs: Vital Signs Period Temp Pulse Resp BP Sys/Maddox Pulse Ox Last 24 Hr 97.2 F-99.1 F 62-76 18-18 95-108/66-78 Date of Session: 06/25/19 Chief Complaint:: " I need a little more klonopin tonight." HPI: Day 4 of detoxification. Patient was initially seen by this technical document writer on (see my note) and during that encounter, he has DECLINED to resume his outpatient medications. Mr Rodriguez had consented to follow his detoxification protocol. He indicates that he has, earlier, approached the medical nurse practitioner for an increase of his dose of clonazepam. " The medical doctor asked me to see the psychiatrist." ROS: Patient is alert, fully oriented, cooperative and cognitively intact. Current Medications: Active Medications Generic Name Dose Route Start Last Admin Trade Name Freq PRN Reason Stop Dose Admin Acetaminophen 650 mg 06/21/19 17:28 Tylenol - PO Q6H PRN PAIN LEVEL 4 - 6 Acetaminophen 650 mg 06/21/19 17:28 Tylenol - PO Q6H PRN FEVER Al Hydroxide/Mg Hydroxide 30 ml 06/21/19 17:28 Mylanta Oral Suspension - PO Q6H PRN DYSPEPSIA Bismuth Subsalicylate 524 mg 06/21/19 17:28 Pepto-Bismol - PO Q1H PRN DIARRHEA Clonazepam 0.5 mg 06/21/19 17:32 06/25/19 15:28 Klonopin - PO 0.5 mg Q6H PRN Administration Withdrawal Symptoms Eucalyptus/Menthol/Phenol/Sorbitol 1 each 06/21/19 17:28 06/21/19 22:05 Cepastat Lozenge - MM 06/27/19 17:28 1 each Q4H PRN Administration SORE THROAT Guaifenesin 10 ml 06/21/19 17:28 Robitussin - PO Q6H PRN COUGH Hydroxyzine Pamoate 25 mg 06/21/19 17:28 06/25/19 09:59 Vistaril - PO 06/27/19 17:28 25 mg Q6H PRN Administration For Anxiety Ibuprofen 400 mg 06/21/19 17:28 06/24/19 17:23 Motrin - PO 400 mg Q6H PRN Administration PAIN LEVEL 1 - 3 Magnesium Citrate 300 ml 06/21/19 17:28 Citroma - PO Q48H PRN CONSTIPATION Magnesium Hydroxide 30 ml 06/21/19 17:28 Milk Of Magnesia - PO PRN PRN CONSTIPATION Melatonin 5 mg 06/21/19 17:28 06/21/19 22:04 Melatonin PO 5 mg HS PRN Administration INSOMNIA Methadone HCl 5 mg 06/26/19 06:00 Dolophine - PO 06/26/19 06:01 ONCE@0600 ONE Methocarbamol 500 mg 06/21/19 17:28 06/24/19 22:04 Robaxin - PO 06/27/19 17:28 500 mg Q6H PRN Administration MUSCLE SPASMS Nicotine 14 mg 06/22/19 10:00 06/25/19 09:59 Nicoderm Patch - TD Not Given DAILY EVELIO Nicotine Polacrilex 2 mg 06/21/19 17:28 06/24/19 17:24 Nicorette Gum - BUC 2 mg Q2H PRN Administration NICOTINE REPLACEMENT RX Ondansetron HCl 4 mg 06/21/19 17:28 Zofran Odt - SL 06/27/19 17:31 Q12H PRN Nausea/Vomiting Multivit/Folic Acid/Iron 1 tab 06/22/19 10:00 06/25/19 09:59 Vitamins (Sjr) - PO 1 tab DAILY EVELIO Administration Pseudoephedrine/Triprolidine 1 combo 06/21/19 17:28 Actifed - PO 06/27/19 17:31 Q6H PRN NASAL CONGESTION Thiamine HCl 100 mg 06/21/19 22:00 06/24/19 22:04 Vitamin B1 - PO 100 mg HS EVELIO Administration Medication(s) Change(s): None. Current Side Effect: No Lab tests ordered: No Lab tests reviewed: Yes Provider note:: Chart reviewed. Met with patient. Mr Rodriguez looks and feels considerably better after four days of detoxification. Patient is observed as neatly groomed, resting comfortably in his room, alert and fully oriented. Patient states that he is looking forward to transition to rehabilitation (at [facility]) and, after rehabilitation, relocation to [place] with his family. " I feel fine. I was wondering if 0.5 mg of klonopin is enough for me, that's why I spoke with the other doctor for more than 0.5 mg but only for tonight." Mental status remains stable. Refer to MSE report for details. Benign hospital course. Total face to face time:: 25 Mental Status Exam - Mental Status Exam Alert and Oriented to: Time, Place, Person Cognitive Function: Good Patient Appearance: Well Groomed Mood: Hopeful, Euthymic Affect: Appropriate, Normal Range Patient Behavior: Appropriate, Cooperative Speech Pattern: Clear, Appropriate Voice Loudness: Normal Thought Process: Intact, Goal Oriented Thought Disorder: Not Present Hallucinations: Denies Suicidal Ideation: Denies Homicidal Ideation: Denies Insight/Judgement: Fair Sleep: Fair Appetite: Good Gait/Station: Normal Psychiatric Treatment Plan - Problem List (1) Sedative, hypnotic or anxiolytic dependence, uncomplicated Current Visit: Yes Comment: . (2) Cocaine use disorder Current Visit: Yes Comment: . (3) Opioid use disorder Current Visit: Yes Comment: . (4) Nicotine dependence Current Visit: Yes Comment: . (5) Substance induced mood disorder Current Visit: Yes Comment: . (6) ADHD Current Visit: Yes Comment: .As per self-report. (7) Bipolar disorder Current Visit: Yes Comment: . As per self-report. Declines to resume medications.
[2019-06-25] MEDS: METHOCARBAMOL 500 MG TABLET PO PRN (21:35)
[2019-06-25] MEDS: THIAMINE HCL 100 MG TABLET (FP) PO SCH (21:58)
[2019-06-26] MEDS ORDERED: METHADONE HCL 5 MG TABLET (FOR DETOX USE ONLY) PO ONE (06:00)
[2019-06-26] MEDS: clonazePAM 0.5 MG TABLET PO PRN (06:33)
[2019-06-26 07:02] VITALS: PULSE 57
[2019-06-26 09:10] VITALS: BP 97/64; TEMP 7.1
--- NOTE | 2019-06-26 09:12 | DS ---
[facility] Detox Discharge Summary Admission Date: 06/21/19 Discharge Date: 06/26/19 - History Present History: Opioid Dependence Additional Comments: 58 years old male admitted on 06/21/19 for opiate withdrawal sx management treated with methadone detox regiment patient has completed methadone regiment and tolerated well alert oriented x 3 respiratory clear lungs bilaterally on auscultation extremities full range of motion skin warm and dry Pertinent Past History: patient is taking xanax 2 mg po qid with monthly refilled patient requests the psychiatrist to prescribe xanax 2 mg po qid monthly for him last 30 days filled was 05/11/19 - Physical Exam Results Vital Signs: Vital Signs Temperature 7.1 F L 06/26/19 09:00 Pulse Rate 57 L 06/26/19 09:00 Respiratory Rate 18 06/26/19 09:00 Blood Pressure 97/64 06/26/19 09:00 O2 Sat by Pulse Oximetry (%) Pertinent Admission Physical Exam Findings: opiate withdrawal Laboratory Last Values WBC 6.7 K/mm3 (4.0-10.0) 06/22/19 11:00 RBC 4.49 M/mm3 (4.00-5.60) 06/22/19 11:00 Hgb 13.9 GM/dL (11.7-16.9) 06/22/19 11:00 Hct 41.5 % (35.4-49) 06/22/19 11:00 MCV 92.4 fl (80-96) 06/22/19 11:00 MCH 30.9 pg (25.7-33.7) 06/22/19 11:00 MCHC 33.4 g/dl (32.0-35.9) 06/22/19 11:00 RDW 14.5 % (11.9-15.9) 06/22/19 11:00 Plt Count 263 K/MM3 (134-434) 06/22/19 11:00 MPV 8.0 fl (7.5-11.1) 06/22/19 11:00 Sodium 142 mmol/L (136-145) 06/22/19 07:30 Potassium 4.5 mmol/L (3.5-5.1) 06/22/19 07:30 Chloride 106 mmol/L (98-107) 06/22/19 07:30 Carbon Dioxide 31 mmol/L (21-32) 06/22/19 07:30 Anion Gap 5 MMOL/L (8-16) L 06/22/19 07:30 BUN 17.4 mg/dL (7-18) 06/22/19 07:30 Creatinine 0.7 mg/dL (0.55-1.3) 06/22/19 07:30 Est GFR (CKD-EPI)AfAm 121.41 06/22/19 07:30 Est GFR (CKD-EPI)NonAf 104.76 06/22/19 07:30 Random Glucose 78 mg/dL (74-106) 06/22/19 07:30 Calcium 8.7 mg/dL (8.5-10.1) 06/22/19 07:30 Total Bilirubin 0.5 mg/dL (0.2-1) 06/22/19 07:30 AST 11 U/L (15-37) L 06/22/19 07:30 ALT 19 U/L (13-61) 06/22/19 07:30 Alkaline Phosphatase 55 U/L (45-117) 06/22/19 07:30 Total Protein 5.6 g/dl (6.4-8.2) L 06/22/19 07:30 Albumin 3.1 g/dl (3.4-5.0) L 06/22/19 07:30 RPR Titer Nonreactive (NONREACTIVE) 06/22/19 07:30 lab noted - Treatment Hospital Course: Detox Protocol Followed, Detoxed Safely, Responded well, Discharged Condition Good, Rehab Referral Accepted Patient has Accepted a Rehab Referral to: new focus - Medication Discharge Medications: Ambulatory Orders Bupropion HCl [Wellbutrin Sr] 150 mg PO BID 04/11/19 Clonazepam [Klonopin] 2 mg PO HS 04/11/19 Clonidine HCl [Catapres] 0.2 mg PO BID 04/11/19 Dextroamphetamine/Amphetamine [Adderall Xr 30 mg Capsule] 30 mg PO ONCE Lamotrigine [Lamictal] 200 mg PO BID 04/11/19 Lurasidone HCl [Latuda] 80 mg PO HS 04/11/19 Quetiapine Fumarate [Seroquel] 150 mg PO HS 04/11/19 Trazodone HCl 150 mg PO HS 04/11/19 Naloxone HCl [Narcan] 4 mg NS ASDIR PRN #1 spray 06/24/19 - Diagnosis (1) Nicotine dependence Status: Acute Qualifiers: Nicotine product type: cigarettes Substance use status: in withdrawal Qualified Code(s): F17.213 - Nicotine dependence, cigarettes, with withdrawal (2) Opioid use disorder Status: Acute (3) Substance induced mood disorder Status: Suspected - AMA Did Patient Leave Against Medical Advice: No COWS (PN) - Opiate Withdrawal Resting Pulse: 0= [place] 80 or Below Sweatin= No chills or Flushing Restless Observation: 0= Sits Still Pupil Size: 0= Normal to Room Light Bone or Joint Aches: 0= None Runny Nose/ Eye Tearin= None GI Upset > 30mins: 0= None Tremor Observation of Outstretched Hands: 0= None Yawning Observation: 0= None Anxiety or Irritability: 1=Feels Anxious/Irritable Goose Flesh Skin: 0=Smooth Skin COWS Score: 1
== END 2019-06-26 09:02 | disposition home or self-care (01) | DRG 897 ==
LOC: YASAS 12:33 → Y3N 17:23
PROVIDERS: ADMIT Allergy & Immunology; ATTEND Allergy & Immunology
PROC: HZ2ZZZZ Detoxification Services for Substance Abuse Treatment (ICD-10-PCS; principal; 2019-06-21)
DX: F11.23 Opioid dependence with withdrawal (principal); F14.20 Cocaine dependence, uncomplicated; F13.230 Sedative, hypnotic or anxiolytic dependence with withdrawal, uncomplicated; F17.210 Nicotine dependence, cigarettes, uncomplicated; F19.24 Other psychoactive substance dependence with psychoactive substance-induced mood disorder; F90.9 Attention-deficit hyperactivity disorder, unspecified type; F31.9 Bipolar disorder, unspecified; J44.9 Chronic obstructive pulmonary disease, unspecified; Z88.2 Allergy status to sulfonamides; Z86.59 Personal history of other mental and behavioral disorders; Z62.810 Personal history of physical and sexual abuse in childhood
CPT/HCPCS: 36415; 80053; 85027; 86593; 93005; 93010; J0735

== ENCOUNTER 2020-06-03 18:25 | Inpatient (IN) | payer OTHER ==
[2020-06-03 19:17] VITALS: BMI 24.7
[2020-06-03] MEDS ORDERED: METHADONE HCL 10 MG TABLET (FOR DETOX USE ONLY) PO ONE (19:45)
[2020-06-03] MEDS ORDERED: BISMUTH SUBSALICYLATE 524 MG/30 ML UD PO PRN (19:45)
[2020-06-03] MEDS ORDERED: MAG HYDROX/AL HYDROX/SIMETH 30 ML UNIT-DOSE CUP PO PRN (19:45)
[2020-06-03] MEDS ORDERED: MAGNESIUM HYDROX 2400MG/30ML ORAL SUSPENSION 30 ML CUP PO PRN (19:45)
[2020-06-03] MEDS ORDERED: NICOTINE POLACRILEX 2 MG GUM BUC PRN (19:45)
[2020-06-03] MEDS ORDERED: MENTHOL/PHENOL 1 EACH UD MM PRN (19:45)
[2020-06-03] MEDS ORDERED: ONDANSETRON *ODT* 4 MG TABLET SL PRN (19:45)
[2020-06-03] MEDS ORDERED: cloNIDine HCL 0.1 MG TABLET PO PRN (19:45)
[2020-06-03] MEDS ORDERED: ACETAMINOPHEN 325 MG TABLET (FP) PO PRN ×2 (19:45)
[2020-06-03] MEDS ORDERED: MAGNESIUM CITRATE 300 ML BOTTLE PO PRN (19:45)
[2020-06-03] MEDS: THIAMINE HCL 100 MG TABLET (FP) PO SCH (21:16)
[2020-06-03] MEDS: MELATONIN 5 MG TABLETS PO SCH (21:17)
[2020-06-04] MEDS ORDERED: METHADONE HCL 5 MG TABLET (FOR DETOX USE ONLY) ONE (09:35)
[2020-06-04] MEDS ORDERED: METHADONE HCL 10 MG TABLET (FOR DETOX USE ONLY) ONE (09:36)
[2020-06-04] MEDS ORDERED: METHADONE (DETOX) 20 MG, METHADONE (DETOX) 5 MG PO ONE (10:00)
[2020-06-04] MEDS: NICOTINE 21 MG/24 HOURS TOPICAL PATCH TD SCH (10:30)
[2020-06-04] MEDS: PRENATAL VITAMINS W/ FOLIC ACID TABLET (FP) PO SCH (10:30)
[2020-06-04 11:58] LABS: HEMATOCRIT 36.5 % (35.4-49); HEMOGLOBIN 12.1 GM/dL (11.7-16.9); MCH 30.2 pg (25.7-33.7); MCHC 33.3 g/dl (32.0-35.9); MEAN CELL VOLUME 90.5 fl (80-96); MEAN PLT VOLUME 8.3 fl (7.5-11.1); PLATELET COUNT 205 K/MM3 (134-434); RBC 4.03 M/mm3 (4.00-5.60); RDW 13.8 % (11.9-15.9); WHITE BLOOD COUNT 5.4 K/mm3 (4.0-10.0)
[2020-06-04 11:59] LABS: POTASSIUM 4.3 mmol/L (3.5-5.1)
[2020-06-04 12:07] LABS: ALBUMIN 2.8 g/dl (3.4-5.0); BLOOD UREA NITROGEN 18.5 mg/dL (7-18); CALCIUM 8.2 mg/dL (8.5-10.1)
[2020-06-04 12:10] LABS: CREATININE 0.7 mg/dL (0.55-1.3)
[2020-06-04 12:12] LABS: BILIRUBIN,TOTAL 0.4 mg/dL (0.2-1); TOT PROT 5.2 g/dl (6.4-8.2)
[2020-06-04] MEDS ORDERED: PNEUMOC 13-VAL CONJ-DIP CRM/PF 0.5 ML DISP.SYRIN IM ONE (12:30)
[2020-06-04] MEDS: METHOCARBAMOL 500 MG TABLET PO PRN (17:19)
[2020-06-04] MEDS: diazePAM 5 MG TABLET PO PRN ×2 (17:19→22:18)
[2020-06-04] MEDS: MELATONIN 5 MG TABLETS PO SCH (22:18)
[2020-06-04] MEDS: THIAMINE HCL 100 MG TABLET (FP) PO SCH (22:18)
[2020-06-04] MEDS: IBUPROFEN 400 MG TABLET (FP) PO PRN (22:21)
[2020-06-05] MEDS: diazePAM 5 MG TABLET PO PRN ×3 (09:31→18:43)
[2020-06-05] MEDS: PRENATAL VITAMINS W/ FOLIC ACID TABLET (FP) PO SCH (09:32)
[2020-06-05] MEDS: NICOTINE 21 MG/24 HOURS TOPICAL PATCH TD SCH (09:32)
[2020-06-05] MEDS ORDERED: METHADONE HCL 10 MG TABLET (FOR DETOX USE ONLY) PO ONE (10:00)
[2020-06-05] MEDS ORDERED: PNEUMOC 13-VAL CONJ-DIP CRM/PF 0.5 ML DISP.SYRIN IM ONE (12:00)
[2020-06-05] MEDS ORDERED: FLU VACCINE (FLULAVAL) PF 60 MCG/0.5 ML SYRINGE 2020-2021 IM ONE (12:00)
[2020-06-05] MEDS: THIAMINE HCL 100 MG TABLET (FP) PO SCH (22:51)
[2020-06-05] MEDS: MELATONIN 5 MG TABLETS PO SCH (22:51)
[2020-06-06] MEDS: diazePAM 5 MG TABLET PO PRN ×4 (07:36→22:13)
[2020-06-06] MEDS ORDERED: METHADONE HCL 10 MG TABLET (FOR DETOX USE ONLY) ONE (09:20)
[2020-06-06] MEDS ORDERED: METHADONE HCL 5 MG TABLET (FOR DETOX USE ONLY) ONE (09:20)
[2020-06-06] MEDS ORDERED: METHADONE (DETOX) 10 MG, METHADONE (DETOX) 5 MG PO ONE (10:00)
[2020-06-06] MEDS: NICOTINE 21 MG/24 HOURS TOPICAL PATCH TD SCH (10:03)
[2020-06-06] MEDS: PRENATAL VITAMINS W/ FOLIC ACID TABLET (FP) PO SCH (10:03)
[2020-06-06] MEDS: METHOCARBAMOL 500 MG TABLET PO PRN ×2 (10:05→17:49)
[2020-06-06] MEDS: IBUPROFEN 400 MG TABLET (FP) PO PRN (14:21)
[2020-06-06] MEDS: THIAMINE HCL 100 MG TABLET (FP) PO SCH (22:11)
[2020-06-06] MEDS: MELATONIN 5 MG TABLETS PO SCH (22:40)
[2020-06-07] MEDS: diazePAM 5 MG TABLET PO PRN ×2 (08:36→15:11)
[2020-06-07] MEDS ORDERED: METHADONE HCL 10 MG TABLET (FOR DETOX USE ONLY) PO ONE (10:00)
[2020-06-07] MEDS: PRENATAL VITAMINS W/ FOLIC ACID TABLET (FP) PO SCH (10:12)
[2020-06-07] MEDS: NICOTINE 21 MG/24 HOURS TOPICAL PATCH TD SCH (10:12)
[2020-06-07] MEDS: METHOCARBAMOL 500 MG TABLET PO PRN (13:08)
[2020-06-07] MEDS: THIAMINE HCL 100 MG TABLET (FP) PO SCH (22:12)
[2020-06-07] MEDS: MELATONIN 5 MG TABLETS PO SCH (22:12)
[2020-06-08] MEDS: diazePAM 5 MG TABLET PO PRN (05:21)
[2020-06-08] MEDS ORDERED: METHADONE HCL 5 MG TABLET (FOR DETOX USE ONLY) PO ONE (06:00)
[2020-06-08 08:56] VITALS: BP 118/87; PULSE 90; TEMP 97.5
== END 2020-06-08 09:05 | disposition home or self-care (01) | DRG 897 ==
LOC: YASAS 18:25 → Y6N 19:31
PROVIDERS: ADMIT Allergy & Immunology; ATTEND Allergy & Immunology
PROC: HZ2ZZZZ Detoxification Services for Substance Abuse Treatment (ICD-10-PCS; principal; 2020-06-03)
DX: F11.23 Opioid dependence with withdrawal (principal); F14.20 Cocaine dependence, uncomplicated; F19.280 Other psychoactive substance dependence with psychoactive substance-induced anxiety disorder; F19.282 Other psychoactive substance dependence with psychoactive substance-induced sleep disorder; F17.210 Nicotine dependence, cigarettes, uncomplicated; F19.24 Other psychoactive substance dependence with psychoactive substance-induced mood disorder; F31.9 Bipolar disorder, unspecified; F43.10 Post-traumatic stress disorder, unspecified; F90.9 Attention-deficit hyperactivity disorder, unspecified type; J43.0 Unilateral pulmonary emphysema [MacLeod's syndrome]; M54.5 Low back pain; G89.29 Other chronic pain; Z62.810 Personal history of physical and sexual abuse in childhood; Z86.69 Personal history of other diseases of the nervous system and sense organs; Z85.820 Personal history of malignant melanoma of skin; Z88.2 Allergy status to sulfonamides
CPT/HCPCS: 36415; 80053; 85027; 86780; 90670; 93005; 93010; C9803; G0008; G0009; J0735; Q2036; U0003

== ENCOUNTER 2020-06-18 01:00 | Inpatient (IN) | payer OTHER ==
[2020-06-18 01:43] VITALS: BMI 23.7
[2020-06-18] MEDS ORDERED: MAGNESIUM HYDROX 2400MG/30ML ORAL SUSPENSION 30 ML CUP PO PRN (02:25)
[2020-06-18] MEDS ORDERED: ONDANSETRON *ODT* 4 MG TABLET SL PRN (02:25)
[2020-06-18] MEDS ORDERED: cloNIDine HCL 0.1 MG TABLET PO PRN (02:25)
[2020-06-18] MEDS ORDERED: METHADONE HCL 10 MG TABLET (FOR DETOX USE ONLY) PO ONE ×2 (02:25→09:12)
[2020-06-18] MEDS ORDERED: P-EPHED 60MG/TRIPROLIDI 2.5MG TABLET PO PRN (02:25)
[2020-06-18] MEDS ORDERED: MAGNESIUM CITRATE 300 ML BOTTLE PO PRN (02:25)
[2020-06-18] MEDS ORDERED: MENTHOL/PHENOL 1 EACH UD MM PRN (02:25)
[2020-06-18] MEDS ORDERED: MAG HYDROX/AL HYDROX/SIMETH 30 ML UNIT-DOSE CUP PO PRN (02:25)
[2020-06-18] MEDS ORDERED: ACETAMINOPHEN 325 MG TABLET (FP) PO PRN ×2 (02:25)
[2020-06-18] MEDS ORDERED: NICOTINE POLACRILEX 2 MG GUM BUC PRN (02:25)
[2020-06-18] MEDS ORDERED: guaiFENesin 200 MG/10 ML 10 ML UNIT-DOSE CUPS PO PRN (02:25)
[2020-06-18] MEDS ORDERED: DICYCLOMINE HCL 10 MG CAPSULE PO PRN (02:25)
[2020-06-18] MEDS: BISMUTH SUBSALICYLATE 524 MG/30 ML UD PO PRN ×2 (03:09→10:14)
[2020-06-18] MEDS: diazePAM 5 MG TABLET PO SCH ×4 (06:36→22:08)
[2020-06-18] MEDS ORDERED: METHADONE HCL 10 MG TABLET PO ONE (10:00)
[2020-06-18] MEDS: PRENATAL VITAMINS W/ FOLIC ACID TABLET (FP) PO SCH (10:10)
[2020-06-18] MEDS: NICOTINE 21 MG/24 HOURS TOPICAL PATCH TD SCH (10:33)
[2020-06-18 11:05] LABS: HEMATOCRIT 41.3 % (35.4-49); HEMOGLOBIN 13.8 GM/dL (11.7-16.9); MCH 29.9 pg (25.7-33.7); MCHC 33.5 g/dl (32.0-35.9); MEAN CELL VOLUME 89.4 fl (80-96); PLATELET COUNT 372 K/MM3 (134-434); RBC 4.63 M/mm3 (4.00-5.60); RDW 14.2 % (11.9-15.9); WHITE BLOOD COUNT 8.5 K/mm3 (4.0-10.0)
[2020-06-18 11:09] LABS: POTASSIUM 4.1 mmol/L (3.5-5.1)
[2020-06-18 11:13] LABS: ALBUMIN 3.5 g/dl (3.4-5.0)
[2020-06-18 11:16] LABS: CREATININE 0.9 mg/dL (0.55-1.3)
[2020-06-18 11:17] LABS: BILIRUBIN,TOTAL 1.2 mg/dL (0.2-1); TOT PROT 6.5 g/dl (6.4-8.2)
[2020-06-18 13:01] LABS: HIV INTERPRETATION NEGATIVE (NEGATIVE)
[2020-06-18] MEDS: hydrOXYzine PAMOATE 25 MG CAPSULE (FP) PO PRN (22:08)
[2020-06-18] MEDS: THIAMINE HCL 100 MG TABLET (FP) PO SCH (22:08)
[2020-06-18] MEDS: MELATONIN 5 MG TABLETS PO SCH (22:08)
[2020-06-19] MEDS: diazePAM 5 MG TABLET PO SCH ×3 (05:23→22:01)
[2020-06-19] MEDS ORDERED: METHADONE HCL 5 MG TABLET (FOR DETOX USE ONLY) ONE (09:42)
[2020-06-19] MEDS ORDERED: METHADONE HCL 10 MG TABLET (FOR DETOX USE ONLY) ONE (09:42)
[2020-06-19] MEDS: hydrOXYzine PAMOATE 25 MG CAPSULE (FP) PO PRN ×2 (09:50→17:54)
[2020-06-19] MEDS: METHOCARBAMOL 500 MG TABLET PO PRN (09:50)
[2020-06-19] MEDS: NICOTINE 21 MG/24 HOURS TOPICAL PATCH TD SCH (09:50)
[2020-06-19] MEDS: PRENATAL VITAMINS W/ FOLIC ACID TABLET (FP) PO SCH (09:51)
[2020-06-19] MEDS: diazePAM 5 MG TABLET PO PRN ×2 (09:52→17:54)
[2020-06-19] MEDS ORDERED: METHADONE (DETOX) 20 MG, METHADONE (DETOX) 5 MG PO ONE (10:00)
[2020-06-19 18:13] LABS: PH,URINE 6.5 (5.0-8.0); URINE APPEARANCE CLEAR; URINE BILIRUBIN NEGATIVE (NEGATIVE); URINE COLOR YELLOW; URINE GLUCOSE (UA) NEGATIVE (NEGATIVE); URINE KETONE NEGATIVE (NEGATIVE); URINE LEUK ESTERASE NEGATIVE (NEGATIVE); URINE NITRITE NEGATIVE (NEGATIVE); URINE PROTEIN NEGATIVE (NEGATIVE); URINE UROBILINOGEN 0.2 mg/dL (0.2-1.0)
[2020-06-19] MEDS: THIAMINE HCL 100 MG TABLET (FP) PO SCH (22:01)
[2020-06-19] MEDS: MELATONIN 5 MG TABLETS PO SCH (22:01)
[2020-06-20] MEDS: diazePAM 5 MG TABLET PO SCH ×2 (05:40→17:25)
[2020-06-20] MEDS: PRENATAL VITAMINS W/ FOLIC ACID TABLET (FP) PO SCH (09:13)
[2020-06-20] MEDS: NICOTINE 21 MG/24 HOURS TOPICAL PATCH TD SCH (09:16)
[2020-06-20] MEDS: diazePAM 5 MG TABLET PO PRN ×3 (09:20→22:12)
[2020-06-20] MEDS ORDERED: METHADONE HCL 10 MG TABLET (FOR DETOX USE ONLY) PO ONE (10:00)
[2020-06-20] MEDS: hydrOXYzine PAMOATE 25 MG CAPSULE (FP) PO PRN (12:51)
[2020-06-20] MEDS: METHOCARBAMOL 500 MG TABLET PO PRN (17:25)
[2020-06-20] MEDS: THIAMINE HCL 100 MG TABLET (FP) PO SCH (22:11)
[2020-06-20] MEDS: MELATONIN 5 MG TABLETS PO SCH (22:11)
[2020-06-21] MEDS ORDERED: diazePAM 5 MG TABLET PO ONE (06:00)
[2020-06-21] MEDS ORDERED: METHADONE HCL 10 MG TABLET (FOR DETOX USE ONLY) ONE (08:37)
[2020-06-21] MEDS ORDERED: METHADONE HCL 5 MG TABLET (FOR DETOX USE ONLY) ONE (08:38)
[2020-06-21] MEDS: NICOTINE 21 MG/24 HOURS TOPICAL PATCH TD SCH (09:43)
[2020-06-21] MEDS: PRENATAL VITAMINS W/ FOLIC ACID TABLET (FP) PO SCH (09:43)
[2020-06-21] MEDS: hydrOXYzine PAMOATE 25 MG CAPSULE (FP) PO PRN (09:46)
[2020-06-21] MEDS ORDERED: METHADONE (DETOX) 10 MG, METHADONE (DETOX) 5 MG PO ONE (10:00)
[2020-06-21] MEDS: diazePAM 5 MG TABLET PO PRN (16:56)
[2020-06-21] MEDS ORDERED: MASKS NR ONE (18:32)
[2020-06-21] MEDS: THIAMINE HCL 100 MG TABLET (FP) PO SCH (22:23)
[2020-06-21] MEDS: MELATONIN 5 MG TABLETS PO SCH (22:23)
[2020-06-22] MEDS: diazePAM 5 MG TABLET PO PRN ×2 (05:29→12:48)
[2020-06-22] MEDS ORDERED: METHADONE HCL 10 MG TABLET (FOR DETOX USE ONLY) PO ONE (10:00)
[2020-06-22] MEDS: NICOTINE 21 MG/24 HOURS TOPICAL PATCH TD SCH (10:09)
[2020-06-22] MEDS: PRENATAL VITAMINS W/ FOLIC ACID TABLET (FP) PO SCH (10:09)
[2020-06-22] MEDS: MELATONIN 5 MG TABLETS PO SCH ×2 (22:28→22:44)
[2020-06-22] MEDS: THIAMINE HCL 100 MG TABLET (FP) PO SCH (22:28)
[2020-06-22] MEDS: METHOCARBAMOL 500 MG TABLET PO PRN (22:44)
[2020-06-23] MEDS ORDERED: METHADONE HCL 5 MG TABLET (FOR DETOX USE ONLY) PO ONE (06:00)
[2020-06-23] MEDS: PRENATAL VITAMINS W/ FOLIC ACID TABLET (FP) PO SCH (09:18)
[2020-06-23] MEDS: NICOTINE 21 MG/24 HOURS TOPICAL PATCH TD SCH (09:19)
[2020-06-23] MEDS: THIAMINE HCL 100 MG TABLET (FP) PO SCH (21:11)
[2020-06-23] MEDS: MELATONIN 5 MG TABLETS PO SCH (21:11)
[2020-06-23] MEDS: IBUPROFEN 400 MG TABLET (FP) PO PRN (21:11)
[2020-06-23] MEDS: hydrOXYzine PAMOATE 25 MG CAPSULE (FP) PO PRN (21:11)
[2020-06-23] MEDS: METHOCARBAMOL 500 MG TABLET PO PRN (21:11)
[2020-06-24] MEDS: IBUPROFEN 400 MG TABLET (FP) PO PRN (06:27)
[2020-06-24] MEDS: hydrOXYzine PAMOATE 25 MG CAPSULE (FP) PO PRN ×4 (06:28→21:11)
[2020-06-24] MEDS: NICOTINE 21 MG/24 HOURS TOPICAL PATCH TD SCH (09:51)
[2020-06-24] MEDS: PRENATAL VITAMINS W/ FOLIC ACID TABLET (FP) PO SCH (09:51)
[2020-06-24] MEDS: METHOCARBAMOL 500 MG TABLET PO PRN (11:18)
[2020-06-24] MEDS: MELATONIN 5 MG TABLETS PO SCH (21:11)
[2020-06-24] MEDS: THIAMINE HCL 100 MG TABLET (FP) PO SCH (21:11)
[2020-06-25] MEDS: NICOTINE 21 MG/24 HOURS TOPICAL PATCH TD SCH (09:38)
[2020-06-25] MEDS: PRENATAL VITAMINS W/ FOLIC ACID TABLET (FP) PO SCH (09:38)
[2020-06-25] MEDS: METHOCARBAMOL 500 MG TABLET PO PRN ×2 (09:40→21:19)
[2020-06-25] MEDS: hydrOXYzine PAMOATE 25 MG CAPSULE (FP) PO PRN (09:40)
[2020-06-25] MEDS ORDERED: hydrOXYzine PAMOATE 50 MG CAPSULE (FP) PO PRN (10:11)
[2020-06-25] MEDS ORDERED: MASKS NR ONE (12:01)
[2020-06-25] MEDS: THIAMINE HCL 100 MG TABLET (FP) PO SCH (21:18)
[2020-06-25] MEDS: MELATONIN 5 MG TABLETS PO SCH (21:18)
[2020-06-25] MEDS ORDERED: traZODone HCL 100 MG TABLET (FP) PO SCH (22:00)
[2020-06-26 07:04] VITALS: BP 109/75; PULSE 73; TEMP 97.7
[2020-06-26] MEDS: PRENATAL VITAMINS W/ FOLIC ACID TABLET (FP) PO SCH (09:30)
[2020-06-26] MEDS: NICOTINE 21 MG/24 HOURS TOPICAL PATCH TD SCH (09:30)
[2020-06-26] MEDS ORDERED: BUPRENORPHINE/NALOXONE 2 MG/0.5 MG FILM PACKET SL ONE (09:39)
== END 2020-06-26 10:15 | disposition left against medical advice (07) | DRG 894 ==
LOC: YASAS 01:00 → Y3N 02:19 → Y5N 06-23 12:57
PROVIDERS: ADMIT Allergy & Immunology; ATTEND Allergy & Immunology
PROC: HZ2ZZZZ Detoxification Services for Substance Abuse Treatment (ICD-10-PCS; principal; 2020-06-18)
PROC: HZ42ZZZ Group Counseling for Substance Abuse Treatment, Cognitive-Behavioral (ICD-10-PCS; 2020-06-23)
DX: F11.20 Opioid dependence, uncomplicated (principal); F13.20 Sedative, hypnotic or anxiolytic dependence, uncomplicated; F14.20 Cocaine dependence, uncomplicated; F19.282 Other psychoactive substance dependence with psychoactive substance-induced sleep disorder; F19.280 Other psychoactive substance dependence with psychoactive substance-induced anxiety disorder; F19.24 Other psychoactive substance dependence with psychoactive substance-induced mood disorder; F17.210 Nicotine dependence, cigarettes, uncomplicated; F31.9 Bipolar disorder, unspecified; F41.9 Anxiety disorder, unspecified; J44.9 Chronic obstructive pulmonary disease, unspecified; M54.5 Low back pain; G89.29 Other chronic pain; Z62.810 Personal history of physical and sexual abuse in childhood; Z86.69 Personal history of other diseases of the nervous system and sense organs; Z88.2 Allergy status to sulfonamides
CPT/HCPCS: 36415; 80053; 81003; 85027; 86780; 87389; C9803; U0003

== ENCOUNTER 2021-01-20 19:10 | Inpatient (IN) | payer OTHER ==
[2021-01-20] MEDS ORDERED: MAGNESIUM HYDROX 2400MG/30ML ORAL SUSPENSION 30 ML CUP PO PRN (22:03)
[2021-01-20] MEDS ORDERED: diazePAM 5 MG TABLET PO ONE (22:03)
[2021-01-20] MEDS ORDERED: cloNIDine HCL 0.1 MG TABLET PO PRN (22:03)
[2021-01-20] MEDS ORDERED: NICOTINE POLACRILEX 2 MG GUM BUC PRN (22:03)
[2021-01-20] MEDS ORDERED: MAG HYDROX/AL HYDROX/SIMETH 30 ML UNIT-DOSE CUP PO PRN (22:03)
[2021-01-20] MEDS ORDERED: ACETAMINOPHEN 325 MG TABLET (FP) PO PRN ×2 (22:03)
[2021-01-20] MEDS ORDERED: MENTHOL/PHENOL 1 EACH UD MM PRN (22:03)
[2021-01-20] MEDS ORDERED: BISMUTH SUBSALICYLATE 524 MG/30 ML PO PRN (22:03)
[2021-01-20] MEDS ORDERED: IBUPROFEN 400 MG TABLET (FP) PO PRN (22:03)
[2021-01-20] MEDS ORDERED: MAGNESIUM CITRATE 300 ML BOTTLE PO PRN (22:03)
[2021-01-20] MEDS ORDERED: clonazePAM 0.5 MG ODT TABLETS SL PRN (22:03)
[2021-01-20] MEDS ORDERED: NICOTINE 10 MG CARTRIDGE (INHALER) IH PRN (22:03)
[2021-01-20] MEDS ORDERED: ONDANSETRON *ODT* 4 MG TABLET SL PRN (22:03)
[2021-01-20] MEDS ORDERED: methaDONE HCL 10 MG TABLET (FOR DETOX USE ONLY) PO ONE (22:03)
[2021-01-20] MEDS ORDERED: ALBUTEROL SO4 HFA INHALER IH PRN (22:13)
[2021-01-21 01:17] VITALS: BMI 22.8
[2021-01-21] MEDS ORDERED: diazePAM 5 MG TABLET ONE ×2 (01:25→05:53)
[2021-01-21] MEDS ORDERED: methaDONE HCL 10 MG TABLET (FOR DETOX USE ONLY) ONE (01:26)
[2021-01-21] MEDS: diazePAM 5 MG TABLET PO SCH ×5 (01:32→22:32)
[2021-01-21] MEDS ORDERED: hydrOXYzine PAMOATE 25 MG CAPSULE (FP) PO ONE (05:54)
[2021-01-21] MEDS: hydrOXYzine PAMOATE 25 MG CAPSULE (FP) PO SCH ×5 (05:58→22:32)
[2021-01-21] MEDS: PRENATAL VITAMINS W/ FOLIC ACID TABLET (FP) PO SCH (09:53)
[2021-01-21] MEDS: NICOTINE 14 MG/24 HOURS TOPICAL PATCH TD SCH (09:53)
[2021-01-21 11:16] LABS: ALBUMIN 3.5 g/dl (3.4-5.0); CREATININE 0.8 mg/dL (0.55-1.3)
[2021-01-21 11:18] LABS: BILIRUBIN,TOTAL 0.6 mg/dL (0.2-1); TOT PROT 6.4 g/dl (6.4-8.2)
[2021-01-21] MEDS ORDERED: methaDONE HCL 10 MG TABLET (FOR DETOX USE ONLY) PO ONE (13:54)
[2021-01-21] MEDS: diazePAM 5 MG TABLET PO PRN (14:10)
[2021-01-21] MEDS: MELATONIN 5 MG TABLETS PO SCH (22:32)
[2021-01-21] MEDS: THIAMINE HCL 100 MG TABLET (FP) PO SCH (22:32)
[2021-01-22] MEDS: diazePAM 5 MG TABLET PO PRN ×4 (00:52→18:06)
[2021-01-22] MEDS: diazePAM 5 MG TABLET PO SCH ×3 (06:28→22:22)
[2021-01-22] MEDS: hydrOXYzine PAMOATE 25 MG CAPSULE (FP) PO SCH ×5 (06:28→22:21)
[2021-01-22] MEDS ORDERED: methaDONE HCL 10 MG TABLET (FOR DETOX USE ONLY) ONE (08:58)
[2021-01-22] MEDS ORDERED: methaDONE HCL 10 MG TABLET (FOR DETOX USE ONLY) PO ONE ×2 (10:00)
[2021-01-22] MEDS: PRENATAL VITAMINS W/ FOLIC ACID TABLET (FP) PO SCH (10:19)
[2021-01-22] MEDS: NICOTINE 14 MG/24 HOURS TOPICAL PATCH TD SCH (10:19)
[2021-01-22] MEDS: MELATONIN 5 MG TABLETS PO SCH (22:21)
[2021-01-22] MEDS: METHOCARBAMOL 500 MG TABLET PO PRN (22:21)
[2021-01-22] MEDS: THIAMINE HCL 100 MG TABLET (FP) PO SCH (22:21)
[2021-01-23] MEDS: hydrOXYzine PAMOATE 25 MG CAPSULE (FP) PO SCH ×2 (05:23→09:09)
[2021-01-23] MEDS ORDERED: diazePAM 5 MG TABLET PO SCH (06:00)
[2021-01-23 06:05] VITALS: TEMP 97.8
[2021-01-23] MEDS ORDERED: cloNIDine HCL 0.1 MG TABLET PO PRN (08:48)
[2021-01-23 09:02] VITALS: BP 143/84; PULSE 51
[2021-01-23] MEDS: diazePAM 5 MG TABLET PO PRN (09:05)
[2021-01-23] MEDS: METHOCARBAMOL 500 MG TABLET PO PRN (09:06)
[2021-01-23] MEDS: PRENATAL VITAMINS W/ FOLIC ACID TABLET (FP) PO SCH (09:08)
[2021-01-23] MEDS: NICOTINE 14 MG/24 HOURS TOPICAL PATCH TD SCH (09:09)
[2021-01-23] MEDS ORDERED: methaDONE HCL 10 MG TABLET (FOR DETOX USE ONLY) PO ONE (10:00)
[2021-01-24] MEDS ORDERED: diazePAM 5 MG TABLET PO ONE (06:00)
[2021-01-24] MEDS ORDERED: methaDONE HCL 10 MG TABLET (FOR DETOX USE ONLY) PO ONE (10:00)
== END 2021-01-23 11:15 | disposition left against medical advice (07) | DRG 894 ==
LOC: YASAS 19:10 → Y6N 01-21 08:58
PROVIDERS: ADMIT Allergy & Immunology; ATTEND Allergy & Immunology
PROC: HZ2ZZZZ Detoxification Services for Substance Abuse Treatment (ICD-10-PCS; principal; 2021-01-21)
DX: F11.23 Opioid dependence with withdrawal (principal); F14.20 Cocaine dependence, uncomplicated; F13.230 Sedative, hypnotic or anxiolytic dependence with withdrawal, uncomplicated; F12.20 Cannabis dependence, uncomplicated; F17.213 Nicotine dependence, cigarettes, with withdrawal; F31.9 Bipolar disorder, unspecified; F41.9 Anxiety disorder, unspecified; J44.9 Chronic obstructive pulmonary disease, unspecified; M54.5 Low back pain; G89.29 Other chronic pain; Z86.69 Personal history of other diseases of the nervous system and sense organs; Z85.820 Personal history of malignant melanoma of skin; Z88.2 Allergy status to sulfonamides
CPT/HCPCS: 36415; 80053; 86780; C9803; Q0162; U0003; U0005